=== PATIENT | female | born 1945 | race Two or more races ===

== ENCOUNTER → 2024-06-22 | Outpatient (CLI) | payer MEDICARE, MEDICAID, SELFPAY ==
[2024-06-22 15:36] LABS: Basophils # (Auto) 0.1 Thou/mm3 (0.0-0.2); Basophils % (Auto) 1 % (0-2.5); Eosinophils # (Auto) 0.2 Thou/mm3 (0.0-0.5); Eosinophils % (Auto) 3 % (0-10); Hematocrit 33.2 % (36.0-46.0); Hemoglobin 10.7 g/dL (12.0-16.0); Immature Granulocytes % (Auto) 1 % (0-0); Immature Granulocytes Auto 0.05 Thou/mm3 (0.00-0.00); Lymphocytes # (Auto) 1.8 Thou/mm3 (1.0-4.8); Lymphocytes % (Auto) 25 % (10-50); Mean Corpuscular HGB Conc 32.2 g/dl (31.0-37.0); Mean Corpuscular Volume 84 fL (80-100); Monocytes # (Auto) 0.6 Thou/mm3 (0.0-0.8); Monocytes % (Auto) 9 % (0-12); Neutrophils # (Auto) 4.4 Thou/mm3 (1.8-7.7); Neutrophils % (Auto) 61 % (37-80); Nucleated Red Blood Cell % 0 /100 WBC (0); Platelet Count 219 Thou/mm3 (140-440); RDW Standard Deviation 52.4 fL (36.4-46.3); Red Blood Count 3.96 Miln/mm3 (4.00-5.20); White Blood Count 7.2 Thou/mm3 (3.6-11.0)
[2024-06-22 15:40] LABS: Glucose Estimated Average 114 mg/dL (80-131); Hemoglobin A1C 5.6 % Hgb (4.8-6.0)
[2024-06-22 15:45] LABS: Folate 18.85 ng/mL (>5.38); Vitamin B12 1220 pg/mL (211-911); Vitamin D 25 Hydroxy Total 33.5 ng/mL (7.3-40.2)
[2024-06-22 16:08] LABS: Alanine Aminotransferase 11 U/L (10-49); Albumin, Serum 4.4 gm/dL (3.4-4.8); Albumin/Globulin Ratio 2.1 (1.2-2.2); Alkaline Phosphatase 70 U/L (46-116); Anion Gap 10 (7-16); Aspartate Amino Transferase < 8 U/L (0-34); BUN/Creatinine Ratio 29 Ratio (12-20); Bilirubin,Total 0.4 mg/dL (0.3-1.2); Blood Urea Nitrogen 20 mg/dL (9-23); Calcium 9.5 mg/dL (8.3-10.6); Calcium (Corrected) 9.5 mg/dL (8.5-10.1); Carbon Dioxide 22.7 mMol/L (20.0-31.0); Cardiac Risk Estimate 2.5 RATIO (3.7-5.6); Chloride 103 mMol/L (98-107); Cholesterol 109 mg/dL (132-200); Creatinine (Component) 0.7 mg/dL (0.6-1.3); Free T4 (Free Thyroxine) 1.43 ng/dL (0.89-1.76); Globulin 2.1 gm/dL (2.3-3.5); Glucose 148 mg/dL (74-106); HDL Cholesterol 43 mg/dL (40-60); LDL Cholesterol,Calculated 49 mg/dL (0-130); Magnesium 1.9 mg/dL (1.6-2.6); Osmolality,Calculated 277 (275-295); Potassium 4.1 mMol/L (3.4-5.1); Sodium 136 mMol/L (136-145); Thyroid Stimulating Hormone 0.62 uIU/mL (0.55-4.78); Total Protein 6.5 gm/dL (5.7-8.2); Triglycerides 84 mg/dL (30-150); eGFR > 60 See Note
== END | disposition home or self-care (01) ==
LOC: COPL 14:34
PROVIDERS: PCP Internal Medicine; Referring Provider Internal Medicine; Visit Provider Internal Medicine
DX: E11.9 Type 2 diabetes mellitus without complications (principal)
CPT/HCPCS: 36415; 80053; 80061; 81001; 82306; 82607; 82746; 83036; 83735; 84439; 84443; 85025

== ENCOUNTER → 2024-06-23 | Outpatient (CLI) | payer MEDICARE, MEDICAID, SELFPAY ==
[2024-06-23 13:17] LABS: Collection Type, Urine Clean Catch
[2024-06-23 13:47] LABS: Bacteria,Urine 3+; Bilirubin,Urine Negative (Negative); Blood,Urine 2+ (Negative); Color,Urine Drk-Yellow (Lt Yel-Yel); Glucose, Urine Negative (Negative); Ketones,Urine Negative (Negative); Leukocyte Esterase,Urine Positive (Negative); Nitrite,Urine Positive (Negative); PH,Urine 6.5 (5.0-7.0); Protein,Urine 2+ (Neg - Trace); RBC,Urine 80 /hpf (0-3); Specific Gravity,Urine 1.018 (1.001-1.035); Squamous Epithelial Cell,Urine 1 /hpf (0-5); Urobilinogen,Urine Negative mg/dL (0.0-1.0); WBC,Urine 2640 /hpf (0-5)
[2024-06-23 13:49] LABS: Clarity,Urine Turbid (Clear/Hazy); Culture Indicated,Urine Yes
== END | disposition home or self-care (01) ==
PROVIDERS: PCP Internal Medicine; Referring Provider Internal Medicine; Visit Provider Internal Medicine
DX: E11.9 Type 2 diabetes mellitus without complications (principal)
CPT/HCPCS: 81001; 87077; 87086; 87186

== ENCOUNTER → 2024-10-14 | Outpatient (CLI) | payer MEDICARE, MEDICAID, SELFPAY ==
[2024-10-14 12:24] LABS: Basophils # (Auto) 0.1 Thou/mm3 (0.0-0.2); Basophils % (Auto) 1 % (0-2.5); Eosinophils # (Auto) 0.2 Thou/mm3 (0.0-0.5); Eosinophils % (Auto) 3 % (0-10); Hematocrit 37.8 % (36.0-46.0); Hemoglobin 12.3 g/dL (12.0-16.0); Immature Granulocytes % (Auto) 0 % (0-0); Immature Granulocytes Auto 0.02 Thou/mm3 (0.00-0.00); Lymphocytes % (Auto) 34 % (10-50); Mean Corpuscular HGB Conc 32.5 g/dl (31.0-37.0); Mean Corpuscular Hemoglobin 27.8 pg (25.0-35.0); Mean Corpuscular Volume 85 fL (80-100); Monocytes # (Auto) 0.4 Thou/mm3 (0.0-0.8); Monocytes % (Auto) 6 % (0-12); Neutrophils # (Auto) 3.2 Thou/mm3 (1.8-7.7); Neutrophils % (Auto) 56 % (37-80); Nucleated Red Blood Cell % 0 /100 WBC (0); Platelet Count 146 Thou/mm3 (140-440); RDW Standard Deviation 49.1 fL (36.4-46.3); Red Blood Count 4.43 Miln/mm3 (4.00-5.20); White Blood Count 5.7 Thou/mm3 (3.6-11.0)
[2024-10-14 12:42] LABS: Glucose Estimated Average 114 mg/dL (80-131); Hemoglobin A1C 5.6 % Hgb (4.8-6.0)
== END | disposition home or self-care (01) ==
PROVIDERS: PCP Internal Medicine; Referring Provider Internal Medicine; Visit Provider Internal Medicine
DX: E11.9 Type 2 diabetes mellitus without complications (principal)
CPT/HCPCS: 36415; 83036; 85025

== ENCOUNTER 2025-05-27 23:28 | Inpatient (IN) | payer MEDICARE, MEDICAID, SELFPAY ==
[2025-05-27 23:30] VITALS: PULSE 80; O2SAT 97
[2025-05-27 23:39] VITALS: BMI 21.4
[2025-05-27 23:41] VITALS: BP 138/64; PULSE 82; RESP 45; TEMP 39.3; O2SAT 94
--- NOTE | 2025-05-27 23:59 | PD.EDCHEST ---
ED Chest Pain RME/HPI General Chief Complaint: Shortness of Breath/Dyspnea Stated Complaint: GENERAL ILLNESS Time Seen by Provider: 05/27/25 23:34 Arrival date/time: 05/27/25 23:28 RME / HPI RME / HPI narrative: Dr. Zarate?s Main ED Evaluation: 79 y/o female with Hx of CVA and HTN brought in by son to ED c/o shortness of breath and recent cough. Son states he saw his mother having labored breathing this evening and brought her to the ER. When asked, he stated the labored breathing was his mother breathing fast. Patient also complained of nausea, and fever x 1 day. No vomiting. Patient controls HTN with Carvedilol and Amlodipine. Son states mom has had hot flashes, generalized weakness, and labored breathing earlier this evening. Related Data Home Medications ?Medication ?Instructions ?Recorded ?Confirmed amlodipine 5 mg tablet 5 mg PO QDAY 09/08/23 05/28/25 gabapentin 800 mg tablet 200 mg PO QDAY 09/08/23 05/28/25 aspirin 81 mg tablet,delayed 81 mg PO QDAY 04/28/24 05/28/25 release atorvastatin 20 mg tablet 20 mg PO HS 04/28/24 05/28/25 carvedilol 25 mg tablet 25 mg PO BID 04/28/24 05/28/25 Allergies Allergy/AdvReac Type Severity Reaction Status Date / Time No Known Allergies Allergy Verified 06/23/20 11:30 Review of Systems Review of Systems Systems Reviewed: All systems reviewed, normal except as documented Past Medical History Past Medical History NEUROLOGIC: Positive Cerebrovascular Accident (Aug 2023 w/ left deficeits) CARDIAC: Positive Cardiac Disorders and Hypertension MUSCULOSKELETAL: Positive Musculoskeletal Disorders ENDOCRINE: Positive Endocrine Disorders and Diabetes Mellitus Type 2 Surgical History SURGICAL: Positive Hysterectomy ED Exam Narrative Physical exam: GENERAL APPEARANCE: alert and oriented x 4, well-developed, well-nourished, no acute distress, mild language barrier, son translating. Left-sided hemiplegia. VITALS: All vitals were reviewed and the pulse ox is 94% on 2 L/min via NC, according to my interpretation. HEENT: Normocephalic, atraumatic; pupils equal, round, reactive to light; EOMI; mucous membranes pink, moist; oropharynx clear NECK: Supple LUNGS: CTABL; no wheezes, no rales, no rhonchi. No tachypnea, no respiratory distress. HEART: Regular rate, regular rhythm; normal S1, S2; no murmurs ABDOMEN: non distended; normal BS; soft, no tenderness, no guarding, no rebound; no masses, no organomegaly, no hernia BACK: no CVA tenderness EXTREMITIES: atraumatic; no edema NEUROLOGIC: awake; alert and oriented x4; cranial nerves II-XII grossly intact; left-sided hemiplegia PSYCHIATRIC: appropriate mood and affect SKIN: warm, dry, normal color; no rashes Course Quality Measures Current suspected stage: sepsis Possible source: pulmonary and GI tract/intra-abdominal Blood cultures ordered: yes Antibiotic ordered: Yes Pertinent labs: 05/28/25 00:06 Lactic Acid 1.3 mMol/L (0.4-2.0) Procalcitonin 0.31 ng/ml (0.0-0.49) sepsis Orders Category Date Time Status Bedside COVID-19 Antigen Test NOW Care 05/28/25 00:[address] Screening NOW Care 05/28/25 02:15 Completed Contract Lead STAT Care 05/28/25 00:06 Active Continuous Pulse Oximetry STAT Care 05/28/25 00:06 Completed EKG (ED ONLY) *Do not use* NOW Care 05/28/25 00:06 Completed In and Out Catheter X1PRN Care 05/28/25 00:06 Completed Insert IV NOW Care 05/28/25 00:06 Completed NPO STAT Care 05/28/25 00:06 Completed Strict Intake and Output Routine Care 05/28/25 00:[address] abdomen pelvis wo con Stat Exams 05/28/25 05:[address] angio chest Stat Exams 05/28/25 02:[address] head/brain wo con Stat Exams 05/28/25 05:52 Completed EKG (ED Only) Stat Exams 05/28/25 00:06 Ordered US gall bladder Stat Exams 05/28/25 06:59 Completed XR chest 1V SEPSIS PROTOCOL Stat Exams 05/28/25 00:08 Completed B-Type Natriuretic Peptide Stat Lab 05/28/25 00:06 Completed Blood Culture (Lab) Stat Lab 05/28/25 00:06 Received CBC Stat Lab 05/28/25 00:06 Completed Comprehensive Metabolic Panel Stat Lab 05/28/25 00:06 Completed Influenza A & B Rapid Panel Stat Lab 05/28/25 00:41 Completed LDH (Lactate Dehydrogenase) Stat Lab 05/28/25 00:06 Completed Lactate (Lactic Acid) Stat Lab 05/28/25 00:06 Completed Lipase Stat Lab 05/28/25 00:06 Completed Magnesium Stat Lab 05/28/25 00:06 Completed Partial Thromboplastin Time Stat Lab 05/28/25 00:06 Completed Phosphorous Stat Lab 05/28/25 00:06 Completed Procalcitonin Stat Lab 05/28/25 00:06 Completed Prothrombin Time with INR Stat Lab 05/28/25 00:06 Completed Troponin I Stat Lab 05/28/25 00:06 Completed Urinalysis, C/S if Indicated Stat Lab 05/28/25 00:41 Completed VBG [Venous Blood Gas] Stat Lab 05/28/25 00:06 Completed Acetaminophen Ivpb [Ofirmev Inj] Med 05/28/25 02:42 Discontinued 1,000 mg in 100 ml IV NOW Doxycycline Inj [Vibramycin Inj] 100 mg Med 05/28/25 00:08 Discontinued Sodium Chloride 0.9% (Pop) [NS 0.9% mini bag] 100 ml IV X1 Piper/Tazo 3.375 gm Premix [Zosyn] Med 05/28/25 00:06 Discontinued 3.375 gm in 50 ml IV X1 Sodium Chloride 0.9% 1000 ml [Ns] 1,710 ml Med 05/28/25 00:06 Discontinued IV 1,710 mls/hr Oxygen Delivery NOW RT 05/28/25 00:06 Active Vital Signs Vital signs: Vital Signs Temperature 102.7 F H 05/27/25 23:41 Pulse Rate 82 05/27/25 23:41 Respiratory Rate 45 H 05/27/25 23:41 Blood Pressure 138/64 H 05/27/25 23:41 Pulse Oximetry (%) 94 L 05/27/25 23:41 Oxygen Delivery Method Nasal Cannula 05/27/25 23:41 Oxygen Flow Rate 2 05/27/25 23:41 Chest Pain MDM Narrative MDM Narrative:: 79-year-old female with history of hypertension, diabetes and CVA who presented to the emergency department complaining of shortness of breath and recent cough. Patient also complained of nausea, and fever x 1 day. No vomiting. Son states mom has had hot flashes, generalized weakness, and labored breathing earlier this evening. Denies abdominal pain, chest pain, back pain. No rashes. No dysuria, urinary frequency. Patient takes carvedilol and Amlodipine. Patient arrived febrile at 102.7 with respiratory rate in the 40s. A sepsis alert was called, blood cultures were ordered before antibiotics, 30 cc/kg given, Zosyn and doxycycline ordered, acetaminophen ordered. On the exam the patient appeared weak and she had crackles at the bases bilaterally. Patient's workup reveals leukocytosis at 19,000 with a left shift, dehydration with a BUN/creatinine ratio of 23, minimal hyperglycemia at 200. Normal lactate, normal magnesium, normal LFTs. Lipase is normal. Urine shows some hematuria. Patient had a chest x-ray which showed increased interstitial markings. CT chest ruled out PE and suggested pulmonary edema and a small pericardial effusion. I called Dr. Arevalo (hospitalist on duty). We discussed patient's case in detail. He evaluated the pt and said the pt is c/o abdominal pain now. I went in the room to talk to her about it she is now saying she has upper abdominal pain. She has already had a CT of the chest and I am not able to order a contrasted CT abdomen pelvis but will get noncontrasted. Also right upper quadrant ultrasound. 08:30 care turned over to Dr. Colin pending CT and U/S results. Scribe Attestation: I, Fiorella Diaz, am scribing for and in the presence of Dr. Zarate. Provider Notation: Although this document has been carefully reviewed, there may still be some phonetic and other typographical errors. These errors are purely grammatical due to imperfections in the software program and should not be construed in any way to compromise the substance of the patient's medical care during this visit. Patient data External records reviewed:: [facility] previous records (Reviewed prior ED records from 04/28/24. Patient was seen for CVA, old, hemiparesis.) and EMS form Clinical information provided by:: patient and family (Son) Social determinants that could affect healthcare access:: none Patient has the following chronic illnesses:: HTN, CVA with left deficits How is presenting disease/condition affected by chronic disease/condition?: exacerbated by Evaluation data The following diagnostics were reviewed and interpreted by me:: lab results, radiology exam(s) and EKG tracing(s) (EKG at 00:51 shows normal sinus rhythm at 85, left axis deviation, no ectopy, no signs of acute ischemia, Q wave in V1 and V2, per my interpretation.) Lab and/or radiology exams considered but not ordered:: None Interpretation Summary: See MDM narrative above. RADIOLOGY Procedure(s): US gall bladder Accession Number(s): [id number] cc: Mainor Brown MD; NO PRIMARY/FAMILY,PHYSICIAN; Corby Zarate MD~ Examination: Abdomen sonogram, Limited Date and time of exam: May 28, 2025, 0905 hours INDICATIONS: Onset abdominal pain today Technique: Real-time contreras scale transabdominal sonographic images of the upper abdomen obtained. Findings: 12 mm polyp anterior gallbladder wall No gallstones Gallbladder wall is thickened 0.6 cm with edema Common bile duct 0.4 cm no stones Pancreatic head 2.1 cm Liver 16.5 cm fatty infiltration No focal liver lesions Normal hepatopetal portal venous flow Patent IVC Minimal right pleural fluid IMPRESSION: 12 mm gallbladder polyp Acute acalculous cholecystitis, consider HIDA scan or MRCP follow-up as clinically warranted No common bile duct stones Dictated By: Mainor Brown MD Procedure(s): CT head/brain wo con Accession Number(s): [id number] cc: Eden Arevalo MD; Mainor Brown MD; NO PRIMARY/FAMILY,PHYSICIAN~ Examination: CT brain head without contrast. 2-D sagittal coronal reconstructions Date and time of exam: May 28, 2025, 0625 hours, comparison April 28, 2024 INDICATIONS: Altered mental status today CTDI: vol (mGy): 44 DLP: (mGycm): 821 Technique: Multiple CT axial sections of the brain have been obtained, 5 mm slice thickness. Contrast has not been administered. 2-D sagittal, coronal reconstructions have been obtained Low dose protocols were performed. One or more of the following dose reduction techniques were used; automated exposure control, adjustment of the mA and/or KV according to patient size, use of iterative reconstruction technique. Findings: Mild ventricular enlargement. Old infarcts right caudate nucleus right basal ganglia, encephalomalacia in left frontal lobe Intra-axial or extra-axial hemorrhage density is not seen. No mass effect or midline shift Basal cisterns are not remarkable. Fourth ventricle is midline. Cranial vault intact. Impression: No interval acute hemorrhage, mass effect or midline shift Advise correlation and follow-up accordingly Dictated By: Mainor Brown MD Procedure(s): CT abdomen pelvis wo con Accession Number(s): [id number] cc: Mainor Brown MD; NO PRIMARY/FAMILY,PHYSICIAN; Corby Zarate MD~ Examination: CT abdomen and pelvis without contrast. Coronal 3-D reconstructions. Sagittal 2-D reconstructions. Date and time of exam: May 28, 2025, 0626 hours INDICATIONS: Onset generalized abdominal pain today CTDI: vol (mGy): 10 DLP: (mGycm): 529 Technique: Axial images of the abdomen have been obtained, 3 mm slice thickness Intravenous contrast material has not been administered. Low dose protocols were performed. One or more of the following dose reduction techniques were used; automated exposure control, adjustment of the mA and/or KV according to patient size, use of iterative reconstruction technique. Findings: Small pericardial effusion mild enlargement left atrium left ventricle with vascular congestion and subtle edema at the lung bases Hepatomegaly 17 cm No focal liver or splenic lesions No gallstones identified, common bile duct is poorly visualized No pancreatic mass no dilated pancreatic duct or peripancreatic edema Adrenal glands are not enlarged No hydronephrosis Normal appendix, axial image 174 No bowel obstruction Scattered colonic diverticulosis Absent uterus No pelvic mass Rectal tube, moderate stool in the rectum No bladder mass Severe osteopenia Transpedicular lumbar fusion L3-L5 with satisfactory alignment Minimal chronic compression L1 Moderate narrowing hip joints IMPRESSION: Mild heart failure Hepatomegaly, 17 cm no focal liver lesions No gallstones identified, common bile duct poorly visualized, consider hepatobiliary sonography follow-up as clinically warranted No hydronephrosis Normal appendix Scattered colonic diverticulosis, no diverticulitis No bowel obstruction Dictated By: Mainor Brown MD Procedure(s): CT angio chest Accession Number(s): [id number] cc: Mainor Brown MD; NO PRIMARY/FAMILY,PHYSICIAN; Corby Zarate MD~ Examination: CTA chest with intravenous contrast 2-D reconstructions 3-D reconstructions, vascular Date and time of exam: May 28, 2025, 0252 hours INDICATIONS: Tachypnea hypoxia today CTDI: vol (mGy) 14.66 DLP: (mGycm) 322 Technique: Multiple axial sections of the thorax have been obtained. 3 mm slice thickness, from below the hemidiaphragms to above the apices of the lungs. Mediastinal and lung density settings have been obtained. 2-D sagittal and coronal reconstructions. 3-D angiographic renderings, 3-D volume renderings, 3D post processing, vascular maximum intensity projections obtained. Contrast administered is 100 cc Isovue 370. Low dose protocols were performed. One or more of the following dose reduction techniques were used; automated exposure control, adjustment of the mA and/or KV according to patient size, use of iterative reconstruction technique. Findings: No thoracic aortic aneurysmal dilatation or dissection Pulmonary artery segments are not enlarged No pulmonary artery filling defects noted Pretracheal lymph nodes, the largest 17 mm Poorly defined thyroid nodules Septal edema in the lung dempsey with vascular congestion Small pericardial effusion Significant osteopenia IMPRESSION: Negative for pulmonary artery emboli Mild heart failure Small pericardial effusion Dictated By: Mainor Brown MD Procedure(s): XR chest 1V SEPSIS PROTOCOL Accession Number(s): [id number] cc: Mainor Brown MD; NO PRIMARY/FAMILY,PHYSICIAN; Corby Zarate MD~ EXAMINATION: AP chest single view TECHNIQUE: AP portable upright chest single view Date and time: May 28, 2025, 0032 hours INDICATIONS: Sepsis protocol chest pain shortness of breath today. FINDINGS: Mild CHF Mild enlargement cardiac contour. Prominent vascular congestion. Perihilar edema. No lobar pneumonia. Prominent osteopenia IMPRESSION: Mild CHF No lobar pneumonia Dictated By: Mainor Brown MD Medications / Prescriptions Medications or Prescriptions considered but not ordered:: None Medication administrations:: Medication Administration History Acetaminophen (Acetaminophen 325 Mg Tablet) 650 mg PO Q6H PRN PRN Reason: Fever >100.4 or pain Stop: 06/27/25 10:54 Albuterol/Ipratropium (Albuterol/Ipratropium (Duoneb) Rt Carrol 3 Ml Nebu) 3 ml INH Q2HR PRN PRN Reason: SHORTNESS OF BREATH OR WHEEZE Stop: 06/27/25 10:54 Amlodipine Besylate (Amlodipine Besylate 5 Mg Tablet) 5 mg PO QDAY FARHAN Stop: 06/28/25 08:59 Aspirin (Aspirin Ec 81 Mg Tabec) 81 mg PO QDAY FARHAN Stop: 06/28/25 08:59 Atorvastatin Calcium (Atorvastatin Calcium 20 Mg Tablet) 20 mg PO HS FARHAN Stop: 06/27/25 20:59 Carvedilol (Carvedilol 12.5 Mg Tablet) 25 mg PO BIDWM FARHAN Stop: 06/27/25 17:29 Last Admin: 05/28/25 16:07 Dose: Not Given Documented By: MAURICIO Non-Admin Reason: NPO Docusate Sodium (Docusate Sod 100 Mg Capsule) 100 mg PO QDAY PRN; Protocol PRN Reason: CONSTIPATION Stop: 06/27/25 10:54 Enoxaparin Sodium (Enoxaparin Sod Inj 40 Mg/0.4 Ml Syringe) 40 mg SC QDAY FARHAN Stop: 06/11/25 10:59 Last Admin: 05/28/25 11:57 Dose: 40 mg Documented By: MAURICIO Ceftriaxone Sodium/Dextrose (Rocephin/D5w 1gm Iv Premix) 1 gm in 50 mls @ 100 mls/hr IV QDAY FARHAN Stop: 06/04/25 10:57 Last Admin: 05/28/25 11:54 Dose: 100 mls/hr Documented By: MAURICIO Azithromycin 500 mg/ Sodium (Chloride) 250 mls @ 250 mls/hr IV QDAY FARHAN Stop: 06/04/25 10:58 Last Admin: 05/28/25 13:05 Dose: 250 mls/hr Documented By: MAURICIO Ondansetron HCl (Ondansetron Inj 2 Mg/Ml Inj 2 Ml) 4 mg IVP Q6H PRN; Protocol PRN Reason: NAUSEA OR VOMITING Stop: 06/27/25 10:54 Sennosides (Senna Tablet) 1 tab PO QDAY PRN; Protocol PRN Reason: constipation Stop: 06/27/25 10:54 Discontinued Medications Albuterol/Ipratropium (Albuterol/Ipratropium (Duoneb) Rt Carrol 3 Ml Nebu) 3 ml INH X1 ONE Stop: 05/28/25 10:57 Last Admin: 05/28/25 13:10 Dose: 3 ml Documented By: FRANCISCO Sodium Chloride (Ns) 1,710 mls @ 1,710 mls/hr 30 ml/kg infuse over 60 min (1710 ml) IV .Q1H ONE Stop: 05/28/25 01:05 Last Infusion: 05/28/25 01:42 Dose: Infused Documented By: Admin: 05/28/25 00:33 Dose: 1,710 mls/hr Documented By: JORGE Piperacillin/Tazobactam/Dextrose (Zosyn) 3.375 gm in 50 mls @ 100 mls/hr IV X1 ONE Stop: 05/28/25 00:35 Last Infusion: 05/28/25 01:26 Dose: Infused Documented By: Admin: 05/28/25 00:33 Dose: 100 mls/hr Documented By: JORGE Doxycycline Hyclate 100 mg/ (Sodium Chloride) 100 mls @ 100 mls/hr IV X1 ONE Stop: 05/28/25 01:07 Last Infusion: 05/28/25 01:42 Dose: Infused Documented By: Admin: 05/28/25 00:41 Dose: 100 mls/hr Documented By: JORGE Acetaminophen (Ofirmev Inj) 1,000 mg in 100 mls @ 250 mls/hr IV NOW ONE Stop: 05/28/25 03:05 Last Infusion: 05/28/25 03:51 Dose: Infused Documented By: Admin: 05/28/25 03:23 Dose: 250 mls/hr Documented By: JORGE Potassium Phosphate (Pot Phos 15 Mmol In Ns 250 Ml) 15 mmol in 250 mls @ 62.5 mls/hr IV X1 ONE Stop: 05/28/25 16:50 Last Admin: 05/28/25 14:27 Dose: 62.5 mls/hr Documented By: MAURICIO See above if any Consultations Consultation(s) initiated? (list below): Yes Consultation #1 (Physician, Specialty, Details): Discussed with resident physician Dr. Clemente for admission. Reviewed the patient?s HPI, PMHx, lab and/or radiology results. Discussed treatment plan. Will consult an admission to the hospitalist. Time: 04:45 Consultation #2 (Physician, Specialty, Details): Discussed test HPI, PMHx, lab, radiology results and/or management with resident working with the hospitalist. Will admit for further evaluation and management. Accepts patient for admission. Time: 08:28 Diagnosis Chest Pain Differential Diagnosis: pneumothorax, stable angina, unstable angina pectoris, atypical chest pain, st elevation myocardial infarction, costochondritis, chest pain, biliary colic and other (Pneumonia) Most likely diagnosis given after review of the tests above:: Sepsis Dehydration Hyperglycemia Hematuria Admission Indicated Admission indicated?: indicated Explain why admission is indicated or not indicated:: Patient has abnormalities in their studies and needs admission, see above. Admission Request Was there a request for admission?: Yes Admission Attestation Admission request attestation: Discussed case with [] from Hospitalist service regarding admission. Discussed patients ED course, exam findings, labs, and radiology results. The Hospitalist [agrees,declines] to accept the patient for admission. Disposition Plan Disposition Plan: Admit Critical Care Time Critical Care Time Critical Care Time: Yes Total Critical Care Time (min.): 45 Attestation: The high probability of sudden, clinically significant deterioration in the patient?s condition required the highest level of my preparedness to intervene urgently. The services I provided to this patient were to treat and/or prevent clinically significant deterioration. Services included the following: chart data review, reviewing nursing notes and/or old charts, documentation time, furniture sales consultant collaboration regarding findings and treatment options, medication orders and management, direct patient care, vital sign assessments and ordering, interpreting and reviewing diagnostic studies and lab tests. Aggregate critical care time includes only time during which I was engaged in work directly related to the patient?s care, as described above, whether at bedside or elsewhere in the Emergency Department. It did not include time spent performing other reported procedures or the services of residents, students, nurses or physician assistants. Discharge Plan Plan Patient Disposition: Admit Acute Care w/in Hospital Problem List Clinical Impression: Sepsis, Dehydration, Hyperglycemia, Hematuria
[2025-05-28] VITALS (17 sets, daily range): BP systolic 105–146; BP diastolic 44–96; PULSE 61–83; RESP 13–38; TEMP 36.3–38.7; O2SAT 93–100; BMI 23.1
--- NOTE | 2025-05-28 00:08 | XR_ITS ---
EXAMINATION: AP chest single view TECHNIQUE: AP portable upright chest single view Date and time: May 28, 2025, 0032 hours INDICATIONS: Sepsis protocol chest pain shortness of breath today. FINDINGS: Mild CHF Mild enlargement cardiac contour. Prominent vascular congestion. Perihilar edema. No lobar pneumonia. Prominent osteopenia IMPRESSION: Mild CHF No lobar pneumonia
[2025-05-28] MEDS: PIPER/TAZO 3.375 GM PREMIX 3.375 GM/50 ML BAG IV (00:33)
[2025-05-28] MEDS: SODIUM CHLORIDE 0.9% 1000 ML 1,710 ML 1710 ML IV (00:33)
[2025-05-28 00:39] LABS: Lactate (Lactic Acid) 1.3 mMol/L (0.4-2.0)
[2025-05-28] MEDS: DOXYCYCLINE INJ 100 MG in SODIUM CHLORIDE 0.9% (POP) 100 ML IV (00:41)
[2025-05-28 00:42] LABS: Basophils # (Auto) 0.0 Thou/mm3 (0.0-0.2); Basophils % (Auto) 0 % (0-2.5); Eosinophils # (Auto) 0.3 Thou/mm3 (0.0-0.5); Eosinophils % (Auto) 1 % (0-10); Hematocrit 35.3 % (36.0-46.0); Hemoglobin 11.9 g/dL (12.0-16.0); Immature Granulocytes Auto 0.15 Thou/mm3 (0.00-0.00); Lymphocytes # (Auto) 1.1 Thou/mm3 (1.0-4.8); Lymphocytes % (Auto) 6 % (10-50); Mean Corpuscular HGB Conc 33.7 g/dl (31.0-37.0); Mean Corpuscular Hemoglobin 29.7 pg (25.0-35.0); Mean Corpuscular Volume 88 fL (80-100); Monocytes # (Auto) 0.7 Thou/mm3 (0.0-0.8); Monocytes % (Auto) 4 % (0-12); Neutrophils # (Auto) 16.7 Thou/mm3 (1.8-7.7); Neutrophils % (Auto) 88 % (37-80); Nucleated Red Blood Cell # 0.00 Thou/mm3 (0.00-0.00); Nucleated Red Blood Cell % 0 /100 WBC (0); Platelet Count 129 Thou/mm3 (140-440); RDW Standard Deviation 46.2 fL (36.4-46.3); Red Blood Count 4.01 Miln/mm3 (4.00-5.20); White Blood Count 18.9 Thou/mm3 (3.6-11.0)
[2025-05-28 00:49] LABS: Base Excess, Venous 1 (-3-3); O2 Saturation, Venous 83 % (96-97); PCO2, Venous 35 mmHg (36-56); PO2, Venous 43 mmHg (15-58); pH, Venous 7.46 (7.33-7.66)
[2025-05-28 01:03] LABS: INR 1.1 (0.9-1.3); Partial Thromboplastin Time 27.8 Seconds (22.0-36.0); Prothrombin Time 11.9 Seconds (9.0-12.2)
[2025-05-28 01:05] LABS: Alanine Aminotransferase 12 U/L (10-49); Albumin, Serum 4.3 gm/dL (3.4-4.8); Albumin/Globulin Ratio 2.0 (1.2-2.2); Alkaline Phosphatase 64 U/L (46-116); Anion Gap 12 (7-16); Aspartate Amino Transferase 25 U/L (0-34); BUN/Creatinine Ratio 23 Ratio (12-20); Bilirubin,Total 0.6 mg/dL (0.3-1.2); Blood Urea Nitrogen 18 mg/dL (9-23); Calcium 9.4 mg/dL (8.3-10.6); Calcium (Corrected) 9.4 mg/dL (8.5-10.1); Carbon Dioxide 23.5 mMol/L (20.0-31.0); Chloride 104 mMol/L (98-107); Creatinine (Component) 0.8 mg/dL (0.6-1.3); Estimated Creatinine Clearance 52.2 mL/min (>60); Globulin 2.2 gm/dL (2.3-3.5); Glucose 199 mg/dL (74-106); LDH (Lactate Dehydrogenase) 215 U/L (120-246); Lipase 26 U/L (12-53); Magnesium 1.8 mg/dL (1.6-2.6); Osmolality,Calculated 285 (275-295); Phosphorous 2.0 mg/dL (2.4-5.1); Potassium 3.7 mMol/L (3.4-5.1); Sodium 139 mMol/L (136-145); Total Protein 6.5 gm/dL (5.7-8.2); eGFR > 60 See Note
[2025-05-28 01:07] LABS: B-Type Natriuretic Peptide 126 pg/mL (0-100)
[2025-05-28 01:15] LABS: Procalcitonin 0.31 ng/ml (0.0-0.49); Troponin I < 0.020 ng/mL (0.0-0.045)
[2025-05-28 01:43] LABS: Collection Type, Urine Clean Catch; Squamous Epithelial Cell,Urine 0 /hpf (0-5)
[2025-05-28 01:45] LABS: Bilirubin,Urine Negative (Negative); Blood,Urine 1+ (Negative); Clarity,Urine Clear (Clear/Hazy); Color,Urine Yellow (Lt Yel-Yel); Culture Indicated,Urine Not Indicated; Glucose, Urine Negative (Negative); Hyaline Casts,Urine < 1 /hpf (0-1); Ketones,Urine Negative (Negative); Leukocyte Esterase,Urine Negative (Negative); Nitrite,Urine Negative (Negative); PH,Urine 6.0 (5.0-7.0); Protein,Urine 1+ (Neg - Trace); RBC,Urine 106 /hpf (0-3); Specific Gravity,Urine 1.027 (1.001-1.035); Urobilinogen,Urine Negative mg/dL (0.0-1.0); WBC,Urine 6 /hpf (0-5)
[2025-05-28 02:03] LABS: Influenza A Ag Negative; Influenza B Ag Negative
--- NOTE | 2025-05-28 02:15 | XR_ITS ---
Examination: CTA chest with intravenous contrast 2-D reconstructions 3-D reconstructions, vascular Date and time of exam: May 28, 2025, 0252 hours INDICATIONS: Tachypnea hypoxia today CTDI: vol (mGy) 14.66 DLP: (mGycm) 322 Technique: Multiple axial sections of the thorax have been obtained. 3 mm slice thickness, from below the hemidiaphragms to above the apices of the lungs. Mediastinal and lung density settings have been obtained. 2-D sagittal and coronal reconstructions. 3-D angiographic renderings, 3-D volume renderings, 3D post processing, vascular maximum intensity projections obtained. Contrast administered is 100 cc Isovue 370. Low dose protocols were performed. One or more of the following dose reduction techniques were used; automated exposure control, adjustment of the mA and/or KV according to patient size, use of iterative reconstruction technique. Findings: No thoracic aortic aneurysmal dilatation or dissection Pulmonary artery segments are not enlarged No pulmonary artery filling defects noted Pretracheal lymph nodes, the largest 17 mm Poorly defined thyroid nodules Septal edema in the lung dempsey with vascular congestion Small pericardial effusion Significant osteopenia IMPRESSION: Negative for pulmonary artery emboli Mild heart failure Small pericardial effusion
[2025-05-28] MEDS: ACETAMINOPHEN IVPB 1,000 MG/100 ML VIAL 250 MG IV (03:23)
--- NOTE | 2025-05-28 03:58 | PRELIM_ITS ---
CT angiogram of the chest with intravenous contrast (axial sections with sagittal and coronal reformats) May 28, 2025 at 0250 hours Clinical History: Tachypnea and hypoxia. Technique:Helical axial sections with sagittal and coronal reformats of the chest were obtained with intravenous contrast. Iterative reconstruction technique was employed to reduce patient radiation exposure. 3D/MIP reconstructed images were also provided. Comparison: No prior study is available for comparison. Findings: There is no evidence of acute pulmonary thromboembolism in the central pulmonary arteries. However, evaluation of the peripheral vessels is limited by respiratory motion artifacts and small peripheral emboli cannot be entirely excluded. There are prominent mediastinal lymph nodes in the prevascular, ao rtopulmonary, right paratracheal, pretracheal and subcarinal regions, the largest measuring 1.7 x 1 cm. The thoracic aorta demonstrates atheromatous calcification without evidence of aneurysm. There is a small complex pericardial effusion (HU 20). No evidence of pneumothorax. A small hiatal hernia is present. There are heterogeneous nodules in the right lobe of thyroid and isthmus, suggestive of multinodular goiter. The lungs demonstrate peribronchial and interlobular interstitial septal thickening. There is dependent subsegmental atelectasis at the lung bases. There are trace bilateral pleural effusions. No evidence of pneumothorax. Degenerative changes are identified in the spine. There are chronic fractures of the left lower ribs. The left adrenal is mildly thickened and nodular, which may be related to adenoma/hyperplasia. There is a subcentimeter renal cortical cyst. The other visualized upper abdominal viscera are unremarkable. Impression: 1. No evidence of acute pulmonary thromboembolism in the central pulmonary arteries. However, evaluation of the peripheral vessels is limited by respiratory motion artifacts and small peripheral emboli cannot be entirely excluded. 2. Findings suggestive of interstitial pulmonary edema. 3. Small complex pericardial effusion. 4. Other findings as described above. Suggest clinical correlation and follow up accordingly. Report Electronically Signed By: Philip Anderson 05/28/2025 3:57:57 AM [EST]
--- NOTE | 2025-05-28 05:47 | XR_ITS ---
Examination: CT abdomen and pelvis without contrast. Coronal 3-D reconstructions. Sagittal 2-D reconstructions. Date and time of exam: May 28, 2025, 0626 hours INDICATIONS: Onset generalized abdominal pain today CTDI: vol (mGy): 10 DLP: (mGycm): 529 Technique: Axial images of the abdomen have been obtained, 3 mm slice thickness Intravenous contrast material has not been administered. Low dose protocols were performed. One or more of the following dose reduction techniques were used; automated exposure control, adjustment of the mA and/or KV according to patient size, use of iterative reconstruction technique. Findings: Small pericardial effusion mild enlargement left atrium left ventricle with vascular congestion and subtle edema at the lung bases Hepatomegaly 17 cm No focal liver or splenic lesions No gallstones identified, common bile duct is poorly visualized No pancreatic mass no dilated pancreatic duct or peripancreatic edema Adrenal glands are not enlarged No hydronephrosis Normal appendix, axial image 174 No bowel obstruction Scattered colonic diverticulosis Absent uterus No pelvic mass Rectal tube, moderate stool in the rectum No bladder mass Severe osteopenia Transpedicular lumbar fusion L3-L5 with satisfactory alignment Minimal chronic compression L1 Moderate narrowing hip joints IMPRESSION: Mild heart failure Hepatomegaly, 17 cm no focal liver lesions No gallstones identified, common bile duct poorly visualized, consider hepatobiliary sonography follow-up as clinically warranted No hydronephrosis Normal appendix Scattered colonic diverticulosis, no diverticulitis No bowel obstruction
--- NOTE | 2025-05-28 05:52 | XR_ITS ---
Examination: CT brain head without contrast. 2-D sagittal coronal reconstructions Date and time of exam: May 28, 2025, 0625 hours, comparison April 28, 2024 INDICATIONS: Altered mental status today CTDI: vol (mGy): 44 DLP: (mGycm): 821 Technique: Multiple CT axial sections of the brain have been obtained, 5 mm slice thickness. Contrast has not been administered. 2-D sagittal, coronal reconstructions have been obtained Low dose protocols were performed. One or more of the following dose reduction techniques were used; automated exposure control, adjustment of the mA and/or KV according to patient size, use of iterative reconstruction technique. Findings: Mild ventricular enlargement. Old infarcts right caudate nucleus right basal ganglia, encephalomalacia in left frontal lobe Intra-axial or extra-axial hemorrhage density is not seen. No mass effect or midline shift Basal cisterns are not remarkable. Fourth ventricle is midline. Cranial vault intact. Impression: No interval acute hemorrhage, mass effect or midline shift Advise correlation and follow-up accordingly
--- NOTE | 2025-05-28 06:59 | XR_ITS ---
Examination: Abdomen sonogram, Limited Date and time of exam: May 28, 2025, 0905 hours INDICATIONS: Onset abdominal pain today Technique: Real-time contreras scale transabdominal sonographic images of the upper abdomen obtained. Findings: 12 mm polyp anterior gallbladder wall No gallstones Gallbladder wall is thickened 0.6 cm with edema Common bile duct 0.4 cm no stones Pancreatic head 2.1 cm Liver 16.5 cm fatty infiltration No focal liver lesions Normal hepatopetal portal venous flow Patent IVC Minimal right pleural fluid IMPRESSION: 12 mm gallbladder polyp Acute acalculous cholecystitis, consider HIDA scan or MRCP follow-up as clinically warranted No common bile duct stones
--- NOTE | 2025-05-28 07:01 | PD.RESEVENT ---
Documentation for date of: 05/28/25 Event Note Event Note: 79 y/o female with Hx of hemorrahgic CVA twice and HTN brought in by son to ED c/o shortness of breath, nausea and altered mentation. Patient is altered and alert only to name, son was contacted who said she had nausea, and her mentation wasn't at baseline, patient on room air with stable vitals, exam noted for abdominal tenderness for which a head CT and CT A/P were ordered. Patient seen and reviewed with attending Dr. Arevalo. Note written by Florencio Winkler MD PGY-1
--- NOTE | 2025-05-28 08:00 | PC.NURSE ---
PER REPORT, PT HERE WITH C/O COUGH, FEVER, AND SHORTNESS OS BREATH. SEPSIS ALERT WAS CALLED AFTER ARRIVAL, NOW PENDING ADMIT
--- NOTE | 2025-05-28 10:18 | PC.LAC ---
ATTEMPTED TO CALL REPORT AND NURSE UNAVAILABLE
[2025-05-28] MEDS: cefTRIAXone/D5w 1gm IV premix 1 GM/50 ML BAG IV (11:54)
--- NOTE | 2025-05-28 11:56 | PD.RESHP ---
Documentation for date of: 05/28/25 [facility] History of Present Illness Chief complaint: SOB History of present illness: 79 y/o F with PMHx significant for multiple CVA's w/ residual deficits, HTN presented to ED from home due to labored breathing per son. Son also reported to ED altered mental status, although baseline is unclear. Patient poor historian without family at bedside, history taken from chart review. Per chart, patient had nausea, fevers, labored breathing, and weakness for 1 day prior to presentation. At time of exam, patient endorsed shortness of breath, but denied nausea, fevers, chills, chest pain. ED course: Labs significant for: WBC 18.9, lactic acid 1.3, procal negative, urinalysis shows 6 WBCs and 106 RBCs without bacteria, nitrates, or leuk. esterace. Imaging significant for: Head CT unremarkable. CXR showing fluid vs right base PNA. Chest CTA showing no consolidation, no PE. A/P CT showed hepatomegaly, diverticulosis without inflammation. Patient receivied 1.7 L bolus NS, doxycycline, zosyn, and tylenol in ED. Review of Systems Review of Systems Systems Reviewed: All systems reviewed, normal except as documented Exam Vital Signs Temp Pulse Resp BP Pulse Ox O2 Del Method O2 Flow Rate 98.2 F 74 20 128/59 L 98 Nasal Cannula 2 05/28/25 10:55 05/28/25 10:55 05/28/25 10:55 05/28/25 10:55 05/28/25 10:55 05/28/25 10:55 05/28/25 10:55 Narrative Exam PE: Gen: Well-developed and well-nourished. Comfortable. HEENT: NCAT, PERRLA, EOMI, MMM, anicteric conjunctivae. L facial droop, slurred speech. CVS: normal S1 and S2. RRR. No M/R/G. Resp: CTA B/L. No rhonchi, rales, crackles. Wheezing. Abd: soft, non-tender, non-distended. BS+ in all 4 quadrants. MSK: Good ROM in RUE & RLE. No rash. Severe weakness CHU and LL extremities. Pain in left leg, 1+ edema right leg. Neuro: CN II-XII grossly intact. Strength 5/5 in RUE & RLE. Alert and oriented x1. Follows commands and answers simple questions appropriately. Psych: appropriate mood and affect. Results: Labs 05/29/25 04:54 05/29/25 04:54 Labs: Short CBC 05/28/25 Range/Units 00:06 WBC 18.9 H (3.6-11.0) Thou/mm3 Hgb 11.9 L (12.0-16.0) g/dL Hct 35.3 L (36.0-46.0) % Plt Count 129 L (140-440) Thou/mm3 BMP 05/28/25 00:06 Sodium 139 Potassium 3.7 Chloride 104 Carbon Dioxide 23.5 BUN 18 Creatinine 0.8 Glucose 199 H Calcium 9.4 Cardiac Enzymes 05/28/25 Range/Units 00:06 Troponin I < 0.020 (0.0-0.045) ng/mL Liver Function 05/28/25 Range/Units 00:06 Total Bilirubin 0.6 (0.3-1.2) mg/dL AST 25 (0-34) U/L ALT 12 (10-49) U/L Alkaline Phosphatase 64 (46-116) U/L Albumin 4.3 (3.4-4.8) gm/dL Urine 05/28/25 Range/Units 00:41 Urine Color Yellow (Lt Yel-Yel) Urine Clarity Clear (Clear/Hazy) Urine pH 6.0 (5.0-7.0) Ur Specific [place] 1.027 (1.001-1.035) Urine Protein 1+ A (Neg - Trace) Urine Glucose (UA) Negative (Negative) ABG Interpretation ABG results: 05/28/25 00:06 VBG pH 7.46 VBG pCO2 35 L VBG pO2 43 VBG Base Excess 1 Quality Measures Quality Measures sepsis Current suspected stage: ruled out Possible source: pulmonary and GI tract/intra-abdominal Blood cultures ordered: yes Antibiotic ordered: Yes Advance care planning discussed with:: patient Medications Home Medications and Allergies Home Medications ?Medication ?Instructions ?Recorded ?Confirmed ?Type amlodipine 5 mg tablet 5 mg PO QDAY 09/08/23 05/28/25 History gabapentin 800 mg tablet 200 mg PO QDAY 09/08/23 05/28/25 History aspirin 81 mg tablet,delayed 81 mg PO QDAY 04/28/24 05/28/25 History release atorvastatin 20 mg tablet 20 mg PO HS 04/28/24 05/28/25 History carvedilol 25 mg tablet 25 mg PO BID 04/28/24 05/28/25 History Allergies Allergy/AdvReac Type Severity Reaction Status Date / Time No Known Allergies Allergy Verified 06/23/20 11:30 Visit Medications Acetaminophen (Acetaminophen 325 Mg Tablet) 650 mg PO Q6H PRN PRN Reason: Fever >100.4 or pain Stop: 06/27/25 10:54 Albuterol/Ipratropium (Albuterol/Ipratropium (Duoneb) Rt Carrol 3 Ml Nebu) 3 ml INH Q2HR PRN PRN Reason: SHORTNESS OF BREATH OR WHEEZE Stop: 06/27/25 10:54 Docusate Sodium (Docusate Sod 100 Mg Capsule) 100 mg PO QDAY PRN; Protocol PRN Reason: CONSTIPATION Stop: 06/27/25 10:54 Enoxaparin Sodium (Enoxaparin Sod Inj 40 Mg/0.4 Ml Syringe) 40 mg SC QDAY FARHAN Stop: 06/11/25 10:59 Ceftriaxone Sodium/Dextrose (Rocephin/D5w 1gm Iv Premix) 1 gm in 50 mls @ 100 mls/hr IV QDAY FARHAN Stop: 06/04/25 10:57 Azithromycin 500 mg/ Sodium (Chloride) 250 mls @ 250 mls/hr IV QDAY FARHAN Stop: 06/04/25 10:58 Ondansetron HCl (Ondansetron Inj 2 Mg/Ml Inj 2 Ml) 4 mg IVP Q6H PRN; Protocol PRN Reason: NAUSEA OR VOMITING Stop: 06/27/25 10:54 Sennosides (Senna Tablet) 1 tab PO QDAY PRN; Protocol PRN Reason: constipation Stop: 06/27/25 10:54 Discontinued Medications Albuterol/Ipratropium (Albuterol/Ipratropium (Duoneb) Rt Carrol 3 Ml Nebu) 3 ml INH X1 ONE Stop: 05/28/25 10:57 Sodium Chloride (Ns) 1,710 mls @ 1,710 mls/hr 30 ml/kg infuse over 60 min (1710 ml) IV .Q1H ONE Stop: 05/28/25 01:05 Last Infusion: 05/28/25 01:42 Dose: Infused Piperacillin/Tazobactam/Dextrose (Zosyn) 3.375 gm in 50 mls @ 100 mls/hr IV X1 ONE Stop: 05/28/25 00:35 Last Infusion: 05/28/25 01:26 Dose: Infused Doxycycline Hyclate 100 mg/ (Sodium Chloride) 100 mls @ 100 mls/hr IV X1 ONE Stop: 05/28/25 01:07 Last Infusion: 05/28/25 01:42 Dose: Infused Acetaminophen (Ofirmev Inj) 1,000 mg in 100 mls @ 250 mls/hr IV NOW ONE Stop: 05/28/25 03:05 Last Infusion: 05/28/25 03:51 Dose: Infused Assessment & Plan Plan 79 y/o F with PMHx significant for multiple CVA's w/ residual deficits, HTN presented to ED from home due to labored breathing per son, admitted for acute encephalopathy secondary to pneumonia. #Acute encephalopathy secondary to #CAP Patient presented with complaints of fever, labord breathing with shortness of breath, altered mental status. A&Ox1, respirations at 30, fever 102.7 on presentation, currently satting well on room air.No clear consolidation on imaging, CXR showed possible right base fluid vs early PNA. Patient denied cough. Non septic. Received 1.7 L IV bolus in ED. CTA chest ruled out PE. - Rocephin 1 g IV qDay (started 05/28) - Azithromycin 500 mg IV qDay (started 05/28) - Tyelnol PRN - Blood cultures pending, follow up - Incentive spirometry - Will speak with family regarding patient's baseline #CVA, patient history Patient history 2 previous strokes with residual deficits. 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 Residual deficits of slurred speech, left sided facial droop, left sided weakness upper and lower extremities. - Resumed home meds: aspirin and atorvastatin. - failed swallow screen, speech eval pending. #HTN, patient history Patient history as stated. -Resume home meds: amlodipine and coreg. DVT prophylaxis: Lovenox GI prophylaxis: None Diet: NPO pending swallow screen Lines: PIV, Benedict Code status: Full Code Plan of care discussed with attending Dr. Church. Grant Tavera MD PGY-2 Attending Provider Attestation/Addendum ITamie DO, attest that I was physically present for the barth portions of the service and evaluated the patient with the resident and I reviewed and discussed the case with the resident and agree with the resident's findings and plans of care as documented above Patient is a 79-year-old female with Pmhx of multiple CVAs left sided deficits who was brought to ED due to altered mental status. Patient had also been reportedly noted to have labored breathing. No family at bedside and patient remains lethargic at time of evaluation. She endorsed fevers and generalized weakness, but denied any chills, chest pain, shortness of breath. However, patient is quite somnolent and requires frequent prompting at time of interview with some confusion. Attempt was made to call patient's son, but unsuccesful. Patient reports pain in her left leg with trace pitting edema in b/l LE. Will obtain venous doppler US of right lower extremity to rule out DVT. CXR showed mild CHF and prominent vascular congestion. chest CTA was negative for PE, but notable for mild HF and small pericardial effusion. She denies any abdominal pain, nausea or vomiting. Suspect source of infection to be more likely URI. She had a fever with T 102.7 on presentation with tachypnea. UA is negative. Flu and COVID negative. Will admit to med/tele for further workup and management of sepsis 2/2 suspected CAP. Will f/u with cultures and treat empirically with azithromycin and rocephin.
[2025-05-28] MEDS: ENOXAPARIN SOD INJ 40 MG/0.4 ML SYRINGE SC (11:57)
[2025-05-28] MEDS: AZITHROMYCIN INJ 500 MG in SODIUM CHLORIDE 0.9% 250 ML 250 ML 250 MG IV (13:05)
[2025-05-28] MEDS: ALBUTEROL/IPRATROPIUM (Duoneb) RT SOL 3 ML NEBU INH (13:10)
[2025-05-28] MEDS: POT PHOS 15 mMol in NS 250 ML 15 MMOL/250 ML BAG 62.5 MMOL IV (14:27)
[2025-05-29] VITALS (8 sets, daily range): BP systolic 132–149; BP diastolic 55–62; PULSE 66–71; RESP 17–20; TEMP 36.2–36.8; O2SAT 94–97
--- NOTE | 2025-05-29 05:14 | PC.NURSE ---
Pt refused to have blood sugar checked this AM. Pt educated on why sugar needs to be checked. Pt still refused blood sugar check despite education.
[2025-05-29 05:45] LABS: Basophils # (Auto) 0.0 Thou/mm3 (0.0-0.2); Basophils % (Auto) 0 % (0-2.5); Eosinophils # (Auto) 0.3 Thou/mm3 (0.0-0.5); Eosinophils % (Auto) 3 % (0-10); Hematocrit 31.8 % (36.0-46.0); Hemoglobin 10.5 g/dL (12.0-16.0); Immature Granulocytes Auto 0.05 Thou/mm3 (0.00-0.00); Lymphocytes # (Auto) 1.4 Thou/mm3 (1.0-4.8); Lymphocytes % (Auto) 16 % (10-50); Mean Corpuscular HGB Conc 33.0 g/dl (31.0-37.0); Mean Corpuscular Hemoglobin 29.3 pg (25.0-35.0); Mean Corpuscular Volume 89 fL (80-100); Monocytes # (Auto) 0.5 Thou/mm3 (0.0-0.8); Monocytes % (Auto) 6 % (0-12); Neutrophils # (Auto) 6.3 Thou/mm3 (1.8-7.7); Neutrophils % (Auto) 74 % (37-80); Nucleated Red Blood Cell # 0.00 Thou/mm3 (0.00-0.00); Nucleated Red Blood Cell % 0 /100 WBC (0); Platelet Count 122 Thou/mm3 (140-440); RDW Standard Deviation 47.3 fL (36.4-46.3); Red Blood Count 3.58 Miln/mm3 (4.00-5.20); White Blood Count 8.5 Thou/mm3 (3.6-11.0)
[2025-05-29 06:02] LABS: INR 1.1 (0.9-1.3); Partial Thromboplastin Time 30.8 Seconds (22.0-36.0); Prothrombin Time 11.5 Seconds (9.0-12.2)
[2025-05-29 06:08] LABS: Alanine Aminotransferase 11 U/L (10-49); Albumin, Serum 3.7 gm/dL (3.4-4.8); Albumin/Globulin Ratio 1.8 (1.2-2.2); Alkaline Phosphatase 60 U/L (46-116); Anion Gap 14 (7-16); Aspartate Amino Transferase 17 U/L (0-34); BUN/Creatinine Ratio 20 Ratio (12-20); Bilirubin,Total 0.4 mg/dL (0.3-1.2); Blood Urea Nitrogen 10 mg/dL (9-23); Calcium 8.6 mg/dL (8.3-10.6); Calcium (Corrected) 8.8 mg/dL (8.5-10.1); Carbon Dioxide 21.4 mMol/L (20.0-31.0); Chloride 108 mMol/L (98-107); Creatinine (Component) 0.5 mg/dL (0.6-1.3); Estimated Creatinine Clearance 83.4 mL/min (>60); Globulin 2.1 gm/dL (2.3-3.5); Glucose 89 mg/dL (74-106); Osmolality,Calculated 282 (275-295); Potassium 3.1 mMol/L (3.4-5.1); Sodium 143 mMol/L (136-145); Total Protein 5.8 gm/dL (5.7-8.2); eGFR > 60 See Note
[2025-05-29] MEDS: AZITHROMYCIN INJ 500 MG in SODIUM CHLORIDE 0.9% 250 ML 250 ML 250 MG IV (08:17)
[2025-05-29] MEDS: ENOXAPARIN SOD INJ 40 MG/0.4 ML SYRINGE SC (08:17)
[2025-05-29] MEDS: POTASSIUM CHL 10 mEq IVPB 10 MEQ/100 ML BAG 100 MEQ IV ×4 (09:38→12:33)
--- NOTE | 2025-05-29 09:57 | PC.SS ---
Addendum entered by TATIANA Walker 05/29/25 16:20: Rounding: pending cultures. Original Note: ASW met with patient at bedside, patient was to alert and oriented. ASW attempted to call son Gilbert to confirm demographic information and complete initial but son was not available, ASW left voicemail with call back number.
--- NOTE | 2025-05-29 10:58 | XR_ITS ---
Examination: Venous duplex lower extremity sonogram, bilateral. Date and time of exam: May 29, 2025, 11:10 a.m. INDICATIONS: Foot and leg swelling today Technique: Multiple sonographic images of the deep venous system have been obtained. B-mode/2-D grayscale imaging of vascular structures and Doppler spectral analysis (waveforms) and color performed Both legs are examined. Findings: Deep venous systems do not demonstrate abnormal echogenicity. All visualized deep veins exhibit compressibility. All visualized deep veins exhibit augmentation. Impression: Negative for deep vein thrombosis
[2025-05-29] MEDS: VANCOMYCIN/NS 1 GM IVPB 200 ML IV ×2 (11:14→22:44)
--- NOTE | 2025-05-29 13:21 | PD.RESPRO ---
Documentation for date of: 05/29/25 Subjective Subjective Interval history: No overnight events. Patient seen and examined at bedside, resting comfortably. Denies fever, chills, SOB, chest pain. On room air, satting well. Blood culture positive for 1/2 bottles GPC, rocephin changed to vancomycin. Follow blood culture. Exam Vital Signs Temp Pulse Resp BP Pulse Ox O2 Del Method O2 Flow Rate 97.4 F 66 18 142/60 H 97 Room Air 1 05/29/25 12:00 05/29/25 12:00 05/29/25 12:00 05/29/25 12:00 05/29/25 12:00 05/29/25 12:00 05/28/25 20:00 Narrative Exam PE: Gen: Well-developed and well-nourished. Comfortable. HEENT: NCAT, PERRLA, EOMI, MMM, anicteric conjunctivae. L facial droop, slurred speech, improved. CVS: normal S1 and S2. RRR. No M/R/G. Resp: CTA B/L. No rhonchi, rales, crackles. Wheezing, improved. Abd: soft, non-tender, non-distended. BS+ in all 4 quadrants. MSK: Good ROM in RUE & RLE. No rash. Severe weakness CHU and LL extremities. Pain in left leg, 1+ edema right leg. Neuro: CN II-XII grossly intact. Strength 5/5 in RUE & RLE. Alert and oriented x1. Follows commands and answers simple questions appropriately. Psych: appropriate mood and affect. Objective Labs 05/29/25 04:54 05/29/25 04:54 Labs: Laboratory Results - last 24 hr 05/29/25 04:54 WBC 8.5 D RBC 3.58 L Hgb 10.5 L Hct 31.8 L MCV 89 MCH 29.3 MCHC 33.0 RDW Std Deviation 47.3 H Plt Count 122 L Neut % (Auto) 74 Lymph % (Auto) 16 [place] % (Auto) 6 Eos % (Auto) 3 Baso % (Auto) 0 Neut # (Auto) 6.3 Lymph # (Auto) 1.4 [place] # (Auto) 0.5 Eos # (Auto) 0.3 Baso # (Auto) 0.0 Immature Gran # (Auto) 0.05 H Absolute Nucleated RBC 0.00 Immature Gran % 1 H Nucleated RBC % 0 PT 11.5 INR 1.1 APTT 30.8 Sodium 143 Potassium 3.1 L D Chloride 108 H Carbon Dioxide 21.4 Anion Gap 14 BUN 10 Creatinine 0.5 L Estim Creat Clear Calc 83.4 eGFR > 60 BUN/Creatinine Ratio 20 Glucose 89 D Calculated Osmolality 282 Calcium 8.6 Corrected Calcium 8.8 Total Bilirubin 0.4 AST 17 ALT 11 Alkaline Phosphatase 60 Total Protein 5.8 Albumin 3.7 D Globulin 2.1 L Albumin/Globulin Ratio 1.8 ABG Interpretation ABG results: 05/28/25 00:06 VBG pH 7.46 VBG pCO2 35 L VBG pO2 43 VBG Base Excess 1 Quality Measures Quality Measures sepsis Current suspected stage: ruled out Possible source: pulmonary and GI tract/intra-abdominal Blood cultures ordered: yes Antibiotic ordered: Yes Advance care planning discussed with:: patient Assessment & Plan Assessment Current Active Medications: Generic Name Dose Route Start Last Admin Trade Name Freq PRN Reason Stop Dose Admin Acetaminophen 650 mg 05/28/25 10:55 Acetaminophen 325 Mg Tablet PO 06/27/25 10:54 Q6H PRN Fever >100.4 or pain Albuterol/Ipratropium 3 ml 05/28/25 10:55 Albuterol/Ipratropium (Duoneb) Rt Carrol 3 Ml Nebu INH 06/27/25 10:54 Q2HR PRN SHORTNESS OF BREATH OR WHEEZE Amlodipine Besylate 5 mg 05/29/25 09:00 05/29/25 08:09 Amlodipine Besylate 5 Mg Tablet PO 06/28/25 08:59 Not Given QDAY FARHAN Aspirin 81 mg 05/29/25 09:00 05/29/25 08:09 Aspirin Ec 81 Mg Tabec PO 06/28/25 08:59 Not Given QDAY FARHAN Atorvastatin Calcium 20 mg 05/28/25 21:00 05/28/25 20:16 Atorvastatin Calcium 20 Mg Tablet PO 06/27/25 20:59 Not Given HS FARHAN Carvedilol 25 mg 05/28/25 17:30 05/29/25 08:08 Carvedilol 12.5 Mg Tablet PO 06/27/25 17:29 Not Given BIDWM FARHAN Docusate Sodium 100 mg 05/28/25 10:55 Docusate Sod 100 Mg Capsule PO 06/27/25 10:54 QDAY PRN CONSTIPATION Protocol Enoxaparin Sodium 40 mg 05/28/25 11:00 05/29/25 08:17 Enoxaparin Sod Inj 40 Mg/0.4 Ml Syringe SC 06/11/25 10:59 40 mg QDAY FARHAN Administration Azithromycin 500 mg/ Sodium 250 mls @ 250 mls/hr 05/28/25 10:59 05/29/25 08:17 Chloride IV 06/04/25 10:58 250 mls/hr QDAY FARHAN Administration Vancomycin/Sodium Chloride 200 mls @ 120 mls/hr 05/29/25 10:00 05/29/25 11:14 Vancomycin/Ns 1 Gm Ivpb IV 06/05/25 09:59 120 mls/hr BID@1000,2200 FARHAN Administration Protocol Ondansetron HCl 4 mg 05/28/25 10:55 Ondansetron Inj 2 Mg/Ml Inj 2 Ml IVP 06/27/25 10:54 Q6H PRN NAUSEA OR VOMITING Protocol Pharmacy Consult 1 each 05/29/25 09:00 Vancomycin Pharmacy To Dose 1 Each Each IV 06/28/25 08:59 QDAY PRN CONSULT Sennosides 1 tab 05/28/25 10:55 Senna Tablet PO 06/27/25 10:54 QDAY PRN constipation Protocol Plan 79 y/o F with PMHx significant for multiple CVA's w/ residual deficits, HTN presented to ED from home due to labored breathing per son, admitted for acute encephalopathy secondary to pneumonia. #Acute encephalopathy secondary to #CAP #Bacterremia, GPC Patient presented with complaints of fever, labord breathing with shortness of breath, altered mental status. A&Ox1, respirations at 30, fever 102.7 on presentation, currently satting well on room air.No clear consolidation on imaging, CXR showed possible right base fluid vs early PNA. Patient denied cough. Non septic. Received 1.7 L IV bolus in ED. CTA chest ruled out PE. GPC 1/2 bottles of blood culture. Changed Rocephin (05/28) to vancomycin. - Vancomycin pharmacy dosing IV qDay (started 05/29) - Azithromycin 500 mg IV qDay (started 05/28) - Tyelnol PRN - Blood cultures pending, follow up - Incentive spirometry - Will speak with family regarding patient's baseline #CVA, patient history Patient history 2 previous strokes with residual deficits. 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 Residual deficits of slurred speech, left sided facial droop, left sided weakness upper and lower extremities. Passed swallow screen, diet initiated. - Resumed home meds: aspirin and atorvastatin. - PT eval pending #HTN, patient history Patient history as stated. - Resume home meds: amlodipine and coreg. DVT prophylaxis: Lovenox GI prophylaxis: None Diet: Dysphagia 2 Lines: PIV, Benedict Code status: Full Code Plan of care discussed with attending Dr. Church. Grant Tavera MD PGY-2 Attending Provider Attestation/Addendum ITamie, DO, attest that I was physically present for the barth portions of the service and evaluated the patient with the resident and I reviewed and discussed the case with the resident and agree with the resident's findings and plans of care as documented above Patient seen and evaluated this AM. She is much more alert and admits to feeling much improved. She is noted to have GPC in 1out of 2 blood cultures. Will switch rocephin to vancomycin. Will repeat bcx in AM. Continue with azithromycin at this time. Will have ST and PT work with pt. Will f/u with cultures to further narrow abx.
[2025-05-29] MEDS: ATORVASTATIN CALCIUM 20 MG TABLET PO (20:40)
[2025-05-30] VITALS (12 sets, daily range): BP systolic 148–159; BP diastolic 57–89; PULSE 58–66; RESP 14–22; TEMP 36.2–36.7; O2SAT 94–96; BMI 22.5; BMI 11.0
[2025-05-30 06:14] LABS: Basophils # (Auto) 0.0 Thou/mm3 (0.0-0.2); Basophils % (Auto) 0 % (0-2.5); Eosinophils # (Auto) 0.3 Thou/mm3 (0.0-0.5); Eosinophils % (Auto) 4 % (0-10); Hematocrit 32.5 % (36.0-46.0); Hemoglobin 10.6 g/dL (12.0-16.0); Immature Granulocytes Auto 0.03 Thou/mm3 (0.00-0.00); Lymphocytes # (Auto) 1.4 Thou/mm3 (1.0-4.8); Lymphocytes % (Auto) 23 % (10-50); Mean Corpuscular HGB Conc 32.6 g/dl (31.0-37.0); Mean Corpuscular Hemoglobin 28.8 pg (25.0-35.0); Mean Corpuscular Volume 88 fL (80-100); Monocytes # (Auto) 0.4 Thou/mm3 (0.0-0.8); Monocytes % (Auto) 7 % (0-12); Neutrophils # (Auto) 4.0 Thou/mm3 (1.8-7.7); Neutrophils % (Auto) 66 % (37-80); Nucleated Red Blood Cell # 0.00 Thou/mm3 (0.00-0.00); Nucleated Red Blood Cell % 0 /100 WBC (0); Platelet Count 136 Thou/mm3 (140-440); RDW Standard Deviation 47.5 fL (36.4-46.3); Red Blood Count 3.68 Miln/mm3 (4.00-5.20); White Blood Count 6.0 Thou/mm3 (3.6-11.0)
[2025-05-30 06:25] LABS: Alanine Aminotransferase 12 U/L (10-49); Albumin, Serum 3.8 gm/dL (3.4-4.8); Albumin/Globulin Ratio 1.6 (1.2-2.2); Alkaline Phosphatase 61 U/L (46-116); Anion Gap 10 (7-16); Aspartate Amino Transferase 19 U/L (0-34); BUN/Creatinine Ratio 20 Ratio (12-20); Bilirubin,Total 0.5 mg/dL (0.3-1.2); Blood Urea Nitrogen 10 mg/dL (9-23); Calcium 9.0 mg/dL (8.3-10.6); Calcium (Corrected) 9.2 mg/dL (8.5-10.1); Carbon Dioxide 23.7 mMol/L (20.0-31.0); Chloride 107 mMol/L (98-107); Creatinine (Component) 0.5 mg/dL (0.6-1.3); Estimated Creatinine Clearance 83.4 mL/min (>60); Globulin 2.4 gm/dL (2.3-3.5); Glucose 113 mg/dL (74-106); Magnesium 1.5 mg/dL (1.6-2.6); Osmolality,Calculated 281 (275-295); Potassium 3.5 mMol/L (3.4-5.1); Sodium 141 mMol/L (136-145); Total Protein 6.2 gm/dL (5.7-8.2); eGFR > 60 See Note
--- NOTE | 2025-05-30 08:07 | EKG_ITS ---
[facility] Test Date: 2025-05-30 Pat Name: VICTOR MANUEL TAYLOR [facility] Medical Billing Associate: PRIETO : 1945 Requested By: Buzz Haji Order Number: [id number] Reading MD: Buzz Haji Measurements Intervals [place] Rate: 64 P: 57 [place]: 179 QRS: -17 QRSD: 85 T: 41 QT: 417 QTc: 433 Interpretive Statements SINUS RHYTHM Compared to ECG 04/28/2024 06:04:29 Sinus bradycardia no longer present /store/S0/[id number]
[2025-05-30] MEDS: AZITHROMYCIN INJ 500 MG in SODIUM CHLORIDE 0.9% 250 ML 250 ML 250 MG IV (08:28)
[2025-05-30] MEDS: POTASSIUM CHLORIDE 10% 20 MEQ/15 ML UDC PO (08:28)
[2025-05-30] MEDS: ASPIRIN EC 81 MG TABEC PO (08:29)
[2025-05-30] MEDS: Magnesium Sulfate 4 GM Ivpb 4 GM/50 ML BAG IV (08:29)
[2025-05-30] MEDS: ENOXAPARIN SOD INJ 40 MG/0.4 ML SYRINGE SC (08:29)
--- NOTE | 2025-05-30 09:12 | PC.SS ---
Follow up note: Blood cultures are positive. On IV antibiotic. Repeat blood cultures.
[2025-05-30] MEDS: VANCOMYCIN/NS 1 GM IVPB 200 ML IV (10:30)
[2025-05-30] MEDS: LEVOFLOXACIN/D5W 750MG IVPB 750 MG/150 ML BAG 100 MG IV (13:11)
--- NOTE | 2025-05-30 14:40 | ESPR_ITS ---
<Statement entered by Buzz Haji MD - 05/31/25 15:36> Patient was seen and examined at bedside. I agree on the assessment and plan on this note as documented by resident Colleen Mercado DO PGY1. 79-year-old female with past medical history as below admitted for acute encephalopathy, there is suspicion of underlying bacteremia however 1/2 blood culture resulted as staph epidermidis, antibiotic therapy narrowed down to levofloxacin. Repeat blood cultures pending, there is very high suspicion of blood culture being contaminant hence if blood cultures negative in a.m., will discharge patient on Levaquin to complete treatment for pneumonia. Otherwise patient is stable, family requesting discharge and home health. Case discussed with attending Dr. Robert Haji MD PGY-2 Documentation for date of: 05/30/25 Subjective Subjective Interval history: Blood culture(05/28) showed Staphylococcus epidermidis 1 out of 2. Ordered repeat blood culture today. Currently suspecting a contamination. Discontinued azithromycin IV 500 mg daily and IV vancomycin. Started IV levofloxacin 750 mg daily. No Overnight events. Labs reviewed and patient examined at the bedside. Denies chest pain, palpation,abdominal pain, N/V, fevers or chills. Exam Vital Signs Temp Pulse Resp BP Pulse Ox O2 Del Method O2 Flow Rate 97.1 F 58 L 14 150/72 H 96 Room Air 1 05/30/25 11:52 05/30/25 11:52 05/30/25 11:52 05/30/25 11:52 05/30/25 11:52 05/30/25 11:52 05/29/25 16:00 Narrative Exam General: No acute distress, well nourished, AAO x2 Eye: PERRL, EOMI, normal conjunctiva, no scleral icterus HENT: Normocephalic, atraumatic, hearing intact to conversation at normal volume, moist oral mucosa Neck: Supple, non-tender, no JVD, no lymphadenopathy Lungs: Non-labored respirations, symmetric chest rise, Clear to auscultate bilaterally, Slight wheezing Heart: Peripheral pulses intact bilaterally, Regular Rate and Rhythm. Abdomen: Soft, non-tender, non-distended, no palpable masses Musculoskeletal: Normal range of motion and strength, No cyanosis or edema, No visible joint swelling, Left facial droop improved. Skin: Skin is warm, dry, no rashes or lesions. Psychiatric: Cooperative, appropriate mood and affect, Awake and alert, not agitated Neuro: Cranial nerves II-XII grossly intact. Strength 4/5 throughout. Sensations intact to light touch. Objective Labs 05/30/25 04:25 05/30/25 04:25 Labs: Laboratory Results - last 24 hr 05/30/25 04:25 WBC 6.0 RBC 3.68 L Hgb 10.6 L Hct 32.5 L MCV 88 MCH 28.8 MCHC 32.6 RDW Std Deviation 47.5 H Plt Count 136 L Neut % (Auto) 66 Lymph % (Auto) 23 Surry % (Auto) 7 Eos % (Auto) 4 Baso % (Auto) 0 Neut # (Auto) 4.0 Lymph # (Auto) 1.4 Surry # (Auto) 0.4 Eos # (Auto) 0.3 Baso # (Auto) 0.0 Immature Gran # (Auto) 0.03 H Absolute Nucleated RBC 0.00 Immature Gran % 1 H Nucleated RBC % 0 Sodium 141 Potassium 3.5 Chloride 107 Carbon Dioxide 23.7 Anion Gap 10 BUN 10 Creatinine 0.5 L Estim Creat Clear Calc 83.4 eGFR > 60 BUN/Creatinine Ratio 20 Glucose 113 H Calculated Osmolality 281 Calcium 9.0 Corrected Calcium 9.2 Magnesium 1.5 L Total Bilirubin 0.5 AST 19 ALT 12 Alkaline Phosphatase 61 Total Protein 6.2 Albumin 3.8 Globulin 2.4 Albumin/Globulin Ratio 1.6 ABG Interpretation ABG results: 05/28/25 00:06 VBG pH 7.46 VBG pCO2 35 L VBG pO2 43 VBG Base Excess 1 Quality Measures Quality Measures sepsis Current suspected stage: ruled out Possible source: pulmonary and GI tract/intra-abdominal Blood cultures ordered: yes Antibiotic ordered: Yes Advance care planning discussed with:: patient and other Assessment & Plan Assessment Current Active Medications: Generic Name Dose Route Start Last Admin Trade Name Freq PRN Reason Stop Dose Admin Acetaminophen 650 mg 05/28/25 10:55 Acetaminophen 325 Mg Tablet PO 06/27/25 10:54 Q6H PRN Fever >100.4 or pain Albuterol/Ipratropium 3 ml 05/28/25 10:55 Albuterol/Ipratropium (Duoneb) Rt Carrol 3 Ml Nebu INH 06/27/25 10:54 Q2HR PRN SHORTNESS OF BREATH OR WHEEZE Amlodipine Besylate 5 mg 05/29/25 09:00 05/30/25 08:28 Amlodipine Besylate 5 Mg Tablet PO 06/28/25 08:59 5 mg QDAY FARHAN Administration Aspirin 81 mg 05/29/25 09:00 05/30/25 08:29 Aspirin Ec 81 Mg Tabec PO 06/28/25 08:59 81 mg QDAY FARHAN Administration Atorvastatin Calcium 20 mg 05/28/25 21:00 05/29/25 20:40 Atorvastatin Calcium 20 Mg Tablet PO 06/27/25 20:59 20 mg HS FARHAN Administration Carvedilol 25 mg 05/28/25 17:30 05/30/25 08:28 Carvedilol 12.5 Mg Tablet PO 06/27/25 17:29 25 mg BIDWM FARHAN Administration Docusate Sodium 100 mg 05/28/25 10:55 Docusate Sod 100 Mg Capsule PO 06/27/25 10:54 QDAY PRN CONSTIPATION Protocol Enoxaparin Sodium 40 mg 05/28/25 11:00 05/30/25 08:29 Enoxaparin Sod Inj 40 Mg/0.4 Ml Syringe SC 06/11/25 10:59 40 mg QDAY FARHAN Administration Levofloxacin/Dextrose 750 mg in 150 mls @ 100 mls/hr 05/30/25 11:30 05/30/25 13:11 Levaquin Ivpb IV 06/06/25 11:29 100 mls/hr QDAY FARHAN Administration Ondansetron HCl 4 mg 05/28/25 10:55 Ondansetron Inj 2 Mg/Ml Inj 2 Ml IVP 06/27/25 10:54 Q6H PRN NAUSEA OR VOMITING Protocol Sennosides 1 tab 05/28/25 10:55 Senna Tablet PO 06/27/25 10:54 QDAY PRN constipation Protocol Plan 79 y/o F with PMHx significant for multiple CVA's w/ residual deficits, HTN presented to ED from home due to labored breathing per son, admitted for acute encephalopathy secondary to pneumonia. #Acute encephalopathy secondary to #CAP #Bacterremia, GPC -Patient presented with complaints of fever, labord breathing with shortness of breath, altered mental status. A&Ox1, respirations at 30, fever 102.7 on presentation, currently satting well on room air.No clear consolidation on imaging, CXR showed possible right base fluid vs early PNA. Patient denied cough. Non septic. -Received 1.7 L IV bolus in ED. CTA chest ruled out PE. -Blood culture(05/28) showed Staphylococcus epidermidis 1 out of 2. -Discontinued Rocephin (05/28-), Vancomycin pharmacy dosing IV qDay (05/29- ), Azithromycin 500 mg IV qDay (05/28-) Plan: -Started IV levofloxacin 750 mg daily. (05/30-) -Tyelnol PRN -Repeat BCx pending -Incentive spirometry -Will speak with family regarding patient's baseline #CVA, patient history Patient history 2 previous strokes with residual deficits. 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 Residual deficits of slurred speech, left sided facial droop, left sided weakness upper and lower extremities. Passed swallow screen, diet initiated. - Resumed home meds: aspirin and atorvastatin. - PT eval pending #HTN, patient history Patient history as stated. - Resume home meds: amlodipine and coreg. DVT prophylaxis: Lovenox GI prophylaxis: None Diet: Dysphagia 2 Lines: PIV, Benedict Code status: Full Code Assessment and plan discussed with my attending physician Dr. Sparks and Dr. Haji (PGY-2) Dr. Mercado (PGY-1) - Internal medicine resident Attending Provider Attestation/Addendum I have seen and examined the patient. I was physically present for the barth portions of the services provided including history, physical exam, diagnosis, treatment plans and orders. I agree with assessment and plan of care as documented by residents. Patient seen and examined at bedside this morning. Appears comfortable and denies any new complaints. Vital signs are stable except for mild hypertension, saturating well on room air. Blood culture from 05/28 showed Staphylococcus aureus epidermidis in one of the 2 bottles, likely to be contamination, we will obtain repeat blood culture for confirmation. We will discontinue azithromycin and vancomycin, we will start patient on levofloxacin. Patient underwent physical therapy evaluation, was recommended to go to SNF. We will plan for discharge to SNF in next 24 to 48 hours if blood culture remain negative for more than 24 hours. Even though this this note was carefully revised there may still be minor errors in tax manager due to voice recognition software. Robert Sparks MD
--- NOTE | 2025-05-30 15:54 | PC.PT ---
Patient is safe to stand pivot transfer to a bedside commode with a FWW and 1 staff assist. RN made aware.
--- NOTE | 2025-05-30 19:18 | PC.NURSE ---
Pt daughter informed me that pt receive 1 time antifungal cream at home DT pt has yeast infection and wanting to continue that meds, called [facility] and noted that urinalysis doesnt show any yeast, per pt doesnt need the antifungal cream.
[2025-05-30] MEDS: ATORVASTATIN CALCIUM 20 MG TABLET PO (20:40)
[2025-05-30 21:16] LABS: Vancomycin,Trough 16.7 mcg/mL (5.0-10.0)
[2025-05-31] VITALS (8 sets, daily range): BP systolic 123–158; BP diastolic 62–93; PULSE 56–64; RESP 17–20; TEMP 36.3–36.8; O2SAT 93–96
[2025-05-31 05:43] LABS: Basophils # (Auto) 0.0 Thou/mm3 (0.0-0.2); Basophils % (Auto) 0 % (0-2.5); Eosinophils # (Auto) 0.3 Thou/mm3 (0.0-0.5); Eosinophils % (Auto) 6 % (0-10); Hematocrit 34.2 % (36.0-46.0); Hemoglobin 11.2 g/dL (12.0-16.0); Immature Granulocytes Auto 0.03 Thou/mm3 (0.00-0.00); Lymphocytes # (Auto) 1.5 Thou/mm3 (1.0-4.8); Lymphocytes % (Auto) 29 % (10-50); Mean Corpuscular HGB Conc 32.7 g/dl (31.0-37.0); Mean Corpuscular Hemoglobin 28.9 pg (25.0-35.0); Mean Corpuscular Volume 88 fL (80-100); Monocytes # (Auto) 0.4 Thou/mm3 (0.0-0.8); Monocytes % (Auto) 7 % (0-12); Neutrophils # (Auto) 2.8 Thou/mm3 (1.8-7.7); Neutrophils % (Auto) 57 % (37-80); Nucleated Red Blood Cell # 0.00 Thou/mm3 (0.00-0.00); Nucleated Red Blood Cell % 0 /100 WBC (0); Platelet Count 166 Thou/mm3 (140-440); RDW Standard Deviation 46.1 fL (36.4-46.3); Red Blood Count 3.87 Miln/mm3 (4.00-5.20); White Blood Count 5.0 Thou/mm3 (3.6-11.0)
[2025-05-31 06:13] LABS: Alanine Aminotransferase 10 U/L (10-49); Albumin, Serum 4.1 gm/dL (3.4-4.8); Albumin/Globulin Ratio 1.6 (1.2-2.2); Alkaline Phosphatase 62 U/L (46-116); Anion Gap 9 (7-16); Aspartate Amino Transferase 16 U/L (0-34); BUN/Creatinine Ratio 16 Ratio (12-20); Bilirubin,Total 0.5 mg/dL (0.3-1.2); Blood Urea Nitrogen 8 mg/dL (9-23); Calcium 8.9 mg/dL (8.3-10.6); Calcium (Corrected) 8.9 mg/dL (8.5-10.1); Carbon Dioxide 25.4 mMol/L (20.0-31.0); Chloride 107 mMol/L (98-107); Creatinine (Component) 0.5 mg/dL (0.6-1.3); Estimated Creatinine Clearance 80.1 mL/min (>60); Globulin 2.5 gm/dL (2.3-3.5); Glucose 108 mg/dL (74-106); Magnesium 1.9 mg/dL (1.6-2.6); Osmolality,Calculated 280 (275-295); Potassium 3.8 mMol/L (3.4-5.1); Sodium 141 mMol/L (136-145); Total Protein 6.6 gm/dL (5.7-8.2); eGFR > 60 See Note
[2025-05-31] MEDS: MAGNESIUM OXIDE 400 MG TABLET PO (08:07)
[2025-05-31] MEDS: ASPIRIN EC 81 MG TABEC PO (08:07)
[2025-05-31] MEDS: LEVOFLOXACIN/D5W 750MG IVPB 750 MG/150 ML BAG 100 MG IV (08:08)
[2025-05-31] MEDS: ENOXAPARIN SOD INJ 40 MG/0.4 ML SYRINGE SC (08:08)
--- NOTE | 2025-05-31 10:17 | PC.SS ---
Late note 05-30-25: SS met with patient and spoke to son (by phone) regarding her d/c plan. Pt is confused. Pt was admitted for SOB. Son confirmed demographic and contact information is correct on facesheet. Pt resides with her caregiver. Pt transfers with assistance into wheelchair. Pt requires assistance with ADLS. SS provided verbal d/c options to home or SNF. Son refuses SNF and his choice is for pt to return home with HH. Per son, pt is established with [facility]. Son, Gilbert Whitehead states he is patient's named medical decision maker. Caregiver will provide transportation home. Pt followed up with PCP last Friday. D/C plan: Return home Next of Kin: Gilbert Whitehead, son, phone# [phone] PCP: Dr. Dex Zimmer Address: Correct on facesheet [facility]: [facility]
--- NOTE | 2025-05-31 14:48 | ESDS_ITS ---
<Statement entered by Grant Tavera MD - 05/31/25 15:41> Patient seen and examined at bedside. I discussed and supervised with the internet sourcer physician who took care of this patient. I personally saw and examined the patient. I agree with most of the assessment and plan. Plan of care discussed with attending Dr. Sparks. Grant Tavera MD PGY-2 Planned Discharge Date 05/31/25 DS: Providers Provider Date of admission: 05/28/25 08:46 Primary care physician: Physician No Primary/Family Admitting Provider: Tamie Church DO Attending Provider on Admission: Tamie Church DO Consults: 05/28/25 13:45 Referral Speech Therapy Urgent Comment: failed swallow screen 05/29/25 10:15 Referral Physical Therapy Routine Comment: Physician Instructions: Attending Provider on DC: Colleen Mercado DO Discharging Provider: Colleen Mercado DO DS: Diagnosis Problem List Completed Was Problem List Reviewed/Reconciled?: Yes Hospital Course Hospital Course Hospital course: Summary: 79 y/o F with PMHx significant for multiple CVA's w/ residual deficits, HTN presented to ED from home due to labored breathing per son, admitted for acute encephalopathy secondary to pneumonia. Patient was given IV antibiotics. First Blood culture showed Staphylococcus epidermidis 1 out of 2. Repeat blood culture was negative. Patient's lab and vitals were stable. Patient was discharged on 05/31 Hospital Course: On presentation, patient had leukocytosis, Head CT negative, CXR showed right base pnuemonia, Chest CTA showed no PE. Upon admission to the hospital (05/28), patient started on Rocephin 1 g IV qDay and Azithromycin 500 mg IV qDay. Given Incentive spirometry, resumed home meds: aspirin and atorvastatin. On 05/29, Blood culture positive for 1/2 bottles GPC, so IV rocephin was changed to vancomycin. On 05/30, blood culture showed Staphylococcus epidermidis 1 out of 2. Ordered repeat blood culture, was likely contamination. Discontinued azithromycin IV 500 mg daily and IV vancomycin. Started IV levofloxacin 750 mg daily. On 05/31, repeat blood culture was negative. Patient's lab and vitals were stable, and patient was discharged. #Acute encephalopathy secondary to #CAP #CVA, patient history #HTN, patient history Instructions: - Complete antibiotic treatment with Levofloxacin for Pneumonia for four more days, - All other medications as below - Follow up with PCP outpatient in 1 week - Return to ED if symptoms worsen Assessment and plan discussed with my attending physician Dr. Sparks and Dr. Tavera (PGY-2) Dr. Mercado (PGY-1) - Internal medicine resident Status at Discharge Overall status at discharge: patient is progressing back to baseline Time Spent with Patient Time attestation: Total time spent providing and/or coordinating discharge services: 36 minutes Time spent: Greater than 30 minutes Home Health Home Health Referral Orders: 05/31/25 13:10 Home Health Referral Routine Reason For Exam: Generalized weakness Home-Bound The patient must either because of illness or injury, need the aid of supportive devices such as crutches, canes, wheelchairs, and walkers; the use of special transportation; or the assistance of another person in order to leave their place of residence; OR have a condition such that leaving his or her home is medically contraindicated. In addition, the patient also meets the following criteria: patient is normally unable to leave the home and leaving home requires considerable taxing effort. Addendum to Home Health Certification Practitioner's Certification: I certify that the patient has been under my care in the hospital and the care of attending physician (see below). We had a [id number] encounter on (see date below). My clinical findings indicate that the patient is home bound per the above criteria and the Home Health Services noted in these orders are medically necessary. The primary reason for the [id number] encounter is related to the fact that the patient requires home health services. Date Certifying Evse-gy-Cyle Physician Encounter: 05/28/25 Physician's Name who will Assume Oversight for HH Services: Physician No Primary/Family RIDER TICKET WORKER - Community Resources: No PT to Evaluate: Yes PT to evaluate and provide a treatmnet plan to increase patient's mobility and strength. Wound Care: No IV Therapy: No RN Safety Evaluation: Yes RN to evaluate and create a plan of care that will produce positive outcomes. Palliative Treatment: No Palliative treatment and evaluate the need for hospice. Home Health Aide - Personal Care: No Home Health Aide to assist with any ADL's. Exam Vital Signs Temp Pulse Resp BP Pulse Ox O2 Del Method O2 Flow Rate 97.4 F 60 17 123/63 96 Room Air 1 05/31/25 11:11 05/31/25 11:11 05/31/25 11:11 05/31/25 11:11 05/31/25 11:11 05/31/25 11:11 05/29/25 16:00 Narrative Exam General: No acute distress, well nourished, AAO x2 Eye: PERRL, EOMI, normal conjunctiva, no scleral icterus HENT: Normocephalic, atraumatic, hearing intact to conversation at normal volume, moist oral mucosa Neck: Supple, non-tender, no JVD, no lymphadenopathy Lungs: Non-labored respirations, symmetric chest rise, Clear to auscultate bilaterally, Slight wheezing Heart: Peripheral pulses intact bilaterally, Regular Rate and Rhythm. Abdomen: Soft, non-tender, non-distended, no palpable masses Musculoskeletal: Normal range of motion and strength, No cyanosis or edema, No visible joint swelling, Left facial droop improved. Skin: Skin is warm, dry, no rashes or lesions. Psychiatric: Cooperative, appropriate mood and affect, Awake and alert, not agitated Neuro: Cranial nerves II-XII grossly intact. Strength 4/5 throughout. Sensations intact to light touch. Discharge Plan Plan Patient Disposition: Home w/HOME HEALTH Patient condition on transfer: Stable Care Plan Goals: - Complete antibiotic treatment with Levofloxacin for Pneumonia for four more days, - All other medications as below - Follow up with PCP outpatient in 1 week - Return to ED if symptoms worsen Prescriptions/Referrals Prescriptions/Med Rec: New levofloxacin 750 mg tablet 750 mg PO QDAY Qty: 4 0RF Continued amlodipine 5 mg tablet 5 mg PO QDAY Patient Comments: TAKE ONE TABLET BY MOUTH DAILY FOR BLOOD PRESSURE gabapentin 800 mg tablet 200 mg PO QDAY Patient Comments: TAKE ONE TABLET BY MOUTH THREE TIMES DAILY FOR NERVE PAIN carvedilol 25 mg Tablet 25 mg PO BID atorvastatin 20 mg Tablet 20 mg PO HS aspirin 81 mg Tablet,Delayed Release (Dr/Ec) 81 mg PO QDAY Referrals: No Primary/Family,Physician [Primary Care Provider] Patient/Caregiver Discharge Instructions Education Materials: Preventing Pneumonia, Treating Pneumonia Print Language: Kiswahili Stand Alone Forms: Leidy Award Info., Patient Portal Info Letter Discharge Order Discharge Orders: Discharge (Routine); Ordered 05/31/25 Ordered By: Buzz Haji Quality Discharge Quality Measures VTE prophylaxis MD Attestestation MD Attestation I have seen and examined the patient. I was physically present for the barth portions of the services provided including history, physical exam, diagnosis, treatment plans and orders. I agree with assessment and plan of care as documented by residents. Even though this this note was carefully revised there may still be minor errors in management accountant due to voice recognition software. Robert Sparks MD
--- NOTE | 2025-06-01 10:22 | PC.CM ---
I spoke to Karli with [facility]. I faxed over referral today. phone # [phone] fax [phone].
== END 2025-05-31 16:56 | disposition home health service (06) | DRG 194 ==
LOC: SERX 05-28 05:30 → SERHOLD 05-28 08:59 → S3NX 05-28 10:28
PROVIDERS: Admitting Provider Internal Medicine; Emergency Provider Emergency Medicine; Visit Provider Internal Medicine
DX: J18.9 Pneumonia, unspecified organism (principal); G93.49 Other encephalopathy; I69.354 Hemiplegia and hemiparesis following cerebral infarction affecting left non-dominant side; I31.39 Other pericardial effusion (noninflammatory); I69.30 Unspecified sequelae of cerebral infarction; I11.0 Hypertensive heart disease with heart failure; I50.9 Heart failure, unspecified; I69.328 Other speech and language deficits following cerebral infarction; I69.392 Facial weakness following cerebral infarction; R29.810 Facial weakness; Z79.899 Other long term (current) drug therapy
CPT/HCPCS: 36415; 51701; 70450; 71045; 71275; 74176; 76705; 80053; 80202; 81001; 82803; 83605; 83615; 83690; 83735; 83880; 84100; 84145; 84484; 85025; 85610; 85730; 87040; 87077; 87081; 87186; 87502; 87635; 92526; 92610; 93005; 93970; 94640; 94664; 94762; 96365; 96366; 97163; 99285; A4649; A9270; J0131; J0456; J0696; J1650; J1956; J2543; J3373; J3475; J3480; J3490; J7030; J7050; J7999; Q9967

== ENCOUNTER 2025-06-28 13:21 | Outpatient (AMB) | payer MEDICARE, MEDICAID, SELFPAY ==
--- NOTE | 2025-06-28 13:34 | GYNCLNT_ITS ---
Vital Signs 06/28/25 13:35 Height 1.65 m Height Method Stated Weight 56.245 kg Weight Measurement Method Standing Scale BMI 20.6 BP 130/82 Blood Pressure Source Automatic Cuff Blood Pressure Location Right Upper Arm Position Sitting Respiration 18 Pulse 59 L Pulse Source Monitor Temp 97.4 F Temp Source Temporal Artery Scan Pulse Oximetry (%) 98 Oxygen Delivery Method Room Air Allergies/Home Meds Allergies & Medications Allergies No Known Allergies Allergy (Verified 06/28/25 13:44) Medication Reconciliation amlodipine 5 mg tablet 5 mg PO QDAY 09/08/23 [History Confirmed 06/28/25] gabapentin 800 mg tablet 200 mg PO QDAY 09/08/23 [History Confirmed 06/28/25] aspirin 81 mg tablet,delayed release 81 mg PO QDAY 04/28/24 [History Confirmed 06/28/25] atorvastatin 20 mg tablet 20 mg PO HS 04/28/24 [History Confirmed 06/28/25] carvedilol 25 mg tablet 25 mg PO BID 04/28/24 [History Confirmed 06/28/25] levofloxacin 750 mg tablet 750 mg PO QDAY CAP #4 tabs 05/31/25 [Rx Confirmed 06/28/25] clobetasol 0.05 % topical ointment 1 applic topical QAM AND QPM 2 weeks #60 grams 06/28/25 [Rx] estradiol 0.01% (0.1 mg/gram) vaginal cream 1 g vaginal QWEEK 30 days #42.5 grams 06/28/25 [Rx] fluconazole 150 mg tablet 150 mg PO Q3D 2 doses #2 tabs 06/28/25 [Rx] secnidazole 2 gram oral delayed release granules in packet 1 packet PO ONCE HS 1 day #1 ea 06/28/25 [Rx] Intake Visit Data Collection New Patient or Established: Established Patient (seen at [facility] within 3 years) Reason for Visit:: REFERRAL VAGINAL BLEEDING Seen by Clinical Staff ONLY (RN/MA): No Do You Feel Safe at Home: Yes Authorities Contacted: N/A PCP or OBGYN visit in last 3 months: No Hx Now: No Are you currently on any form of Control: No Pain Present Currently: No Pain Location: Unable to identify (VAGINAL AREA) Pain Scale Used: Marques-Jim/Numerical Pain scale:: 0 Smoking Status Smoking Status: Never smoker Immunizations Flu Vaccine in the Last 12 Months: No Flu Vaccine Exclusion Criteria: No Exclusion Criteria FIRST RESPONDER: Past Medical History Past Medical History: No Hx Neurological Disorders, No Hx Cardiac Disorders, Yes Hx Hypertension, No Hx Blood Disorders, No Hx Renal Disease, No Hx Diabetes Mellitus Type 1, Yes Hx Diabetes Mellitus Type 2 and Yes Hx Hysterectomy Questionnaires Covid-19 Vaccine Questionnaire Has patient been vacinated for Covid-19 Have you been vacinated for Covid-19: No PHQ-9 PHQ-2 Over the last 2 weeks, how often have you been bothered by any of the following problems? 1. Little interest or pleasure in doing things: not at all 2. Feeling down, depressed, or hopeless: not at all Total score: 0 PHQ-9 3. Trouble falling or staying asleep, or sleeping too much: Not at all 4. Feeling tired or having little energy: Not at all 5. Poor appetite or overeating: Not at all 6. Feeling bad about yourself - or that you are a failure or have let yourself or your family down: Not at all 7. Trouble concentrating on things, such as reading the newspaper or watching television: Not at all 8. Moving or speaking so slowly that other people could have noticed? - Or the opposite - being so fidgety or restless that you have been moving around a lot more than usual: not at all 9. Thoughts that you would be better off or of hurting yourself in some way: Not at all Total score: 0 If you checked off any problems, how difficult have these problems made it for you to do your work, take care of things at home, or get along with other people?: not difficult at all Source: Developed by Drs. Eliezer Banerjee, Lauren Caldera, Armand Hogan and colleagues, with an educational don from [employer]. Depression screen completed yes Social History Living Situation History Marital Status: Unknown Lives With: Family Housing: House Housing Other:: Pt is alert/confused Tobacco History Smoking Status: Never smoker Second Hand Smoke Exposure: No Alcohol History Alcohol Intake: Never Domestic Abuse History Do You Feel Safe at Home: Yes History of Present Illness HPI Narrative Vaginal bleeding in a 79-year-old postmenopausal woman status post hysterectomy Migdalia Whitehead is a 79-year-old postmenopausal woman with a history of hysterectomy in 1987 who presents with vaginal bleeding. She was referred stat from her primary care physician's office. The patient has been experiencing vaginal bleeding along with persistent itching and scratching in the genital area for approximately 6 months, since her last hospitalization. Her caregiver reports that she has been scratching the area extensively, leading to open skin both inside and outside the vaginal area. The scratching and irritation has progressed to include white and red spots, with the patient now experiencing burning sensations during cleaning and pain in both the front and back genital areas. The patient was initially treated with antibiotics by her primary care physician for suspected bladder infection, but the symptoms persisted and worsened. She received a second course of antibiotics when bleeding developed from both front and back areas, but again showed no improvement. During a recent hospitalization for pneumonia approximately 2 weeks ago, the genital infection was noted but no specific treatment was provided. Her caregiver has been applying an antifungal cream similar to clotrimazole to the external area, which provided some relief from itching, though the caregiver has not checked the area recently. The patient was previously prescribed a hormone cream for 3 days, though the caregiver indicates uncertainty about recent usage. The patient's symptoms have significantly impacted her comfort during personal care, as she now experiences pain during bathing and cleaning, which was not previously problematic. 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 Areas of thin skin with pressure-related inflammation noted. Red spots and white areas observed on vulvar tissue General General Appearance: alert, in no apparent distress and healthy appearing Head Head exam: atraumatic Neck Neck exam: Present normal inspection and trachea midline Chest Chest inspection: Present normal inspection and symmetric chest wall rise External exam: Present normal external exam; Absent tenderness Neuro Neurological exam: Present oriented X3 Psych Psychiatric exam: Present normal affect and normal mood Office Procedures [facility] Clinic LOC & Office Proc's Nursing/Assessment Patient Status: Established Patient OB Clinic Nursing Assessment: Medication Reconciliation, Update PMH in EMR and Vital Signs OB Clinic Coordination of Care: Complex Care and Chronic Disease 1-5, Education Complex Pt/Fam, Consent,records obtained, informed consent, Lab and Imaging orders, Results/Orders obtained and Staff clarify orders Established Patient Charge Established Patient Point Assignment: 110 Established Patient Point Charge: EP Level 3 (80-115) Assessment & Plan Diagnosis / Problem List (1) Atrophic vaginitis: Status: Acute (2) Lichen sclerosus et atrophicus: Status: Acute (3) Subacute and chronic vaginitis: Status: Acute Plan Postmenopausal vaginal bleeding Assessment: Patient presents with vaginal bleeding occurring more than 20 years post-hysterectomy. In women of this age who have had hysterectomy decades prior, bleeding is typically attributed to atrophic changes secondary to estrogen deficiency. The absence of hormones causes the pelvic area to dry out, leading to bleeding from atrophic tissues. Plan: - Premarin estrogen cream once weekly for 6 months to address hormonal deficiency and improve tissue integrity Vulvar lichen planus/sclerosis Assessment: Physical examination reveals red, inflamed vulvar skin consistent with an autoimmune condition identified as lichen planus or lichen sclerosis. This is an age-related condition where the skin becomes very thin and inflamed from pressure. The patient has been experiencing chronic itching leading to scratching and secondary skin breakdown. Plan: - Clobetasol (strong topical steroid) cream twice daily for 2 weeks to address redness and itching - Apply to affected red areas including vulvar and perianal regions - Use gloves when applying and wash hands thoroughly after application - Avoid contact with other body areas due to potency of medication Bacterial vaginosis Assessment: Patient has concurrent bacterial infection requiring treatment alongside other vulvar conditions. Plan: - One-time dose antibiotic for bacterial vaginosis (tablet form) Vulvar yeast infection Assessment: Patient has concurrent yeast infection contributing to vulvar symptoms and requiring antifungal treatment. Plan: - Antifungal tablets for yeast infection treatment Advanced Care Planning Advance care planning discussed with:: patient
[2025-06-28 13:35] VITALS: BP 130/82; PULSE 59; RESP 18; TEMP 36.3; O2SAT 98; BMI 20.6
== END 2025-06-28 14:04 | disposition home or self-care (01) ==
LOC: HODSOBC 13:21
PROVIDERS: Supervising Provider Obstetrics & Gynecology; Visit Provider Obstetrics & Gynecology
DX: N95.2 Postmenopausal atrophic vaginitis (principal); L90.0 Lichen sclerosus et atrophicus; B37.31 Acute candidiasis of vulva and vagina; N95.0 Postmenopausal bleeding; I10 Essential (primary) hypertension; G62.9 Polyneuropathy, unspecified; E11.40 Type 2 diabetes mellitus with diabetic neuropathy, unspecified; E78.00 Pure hypercholesterolemia, unspecified; F39 Unspecified mood [affective] disorder; Z90.710 Acquired absence of both cervix and uterus; Z87.01 Personal history of pneumonia (recurrent); Z79.82 Long term (current) use of aspirin; Z79.899 Other long term (current) drug therapy
CPT/HCPCS: 99213; G0463

== ENCOUNTER 2025-07-04 11:35 | Outpatient (AMB) | payer MEDICARE, MEDICAID, SELFPAY ==
--- NOTE | 2025-07-04 11:47 | AMB.GYNCLNOT ---
Allergies/Home Meds Allergies & Medications Allergies No Known Allergies Allergy (Verified 07/04/25 11:47) Medication Reconciliation amlodipine 5 mg tablet 5 mg PO QDAY 09/08/23 [History Confirmed 07/04/25] gabapentin 800 mg tablet 200 mg PO QDAY 09/08/23 [History Confirmed 07/04/25] aspirin 81 mg tablet,delayed release 81 mg PO QDAY 04/28/24 [History Confirmed 07/04/25] atorvastatin 20 mg tablet 20 mg PO HS 04/28/24 [History Confirmed 07/04/25] carvedilol 25 mg tablet 25 mg PO BID 04/28/24 [History Confirmed 07/04/25] levofloxacin 750 mg tablet 750 mg PO QDAY CAP #4 tabs 05/31/25 [Rx Confirmed 07/04/25] clobetasol 0.05 % topical ointment 1 applic topical QAM AND QPM 2 weeks #60 grams 06/28/25 [Rx Confirmed 07/04/25] estradiol 0.01% (0.1 mg/gram) vaginal cream 1 g vaginal QWEEK 30 days #42.5 grams 06/28/25 [Rx Confirmed 07/04/25] fluconazole 150 mg tablet 150 mg PO Q3D 2 doses #2 tabs 06/28/25 [Rx Confirmed 07/04/25] Intake Visit Data Collection New Patient or Established: Established Patient (seen at [facility] within 3 years) Reason for Visit:: DISCUSS MEDICATION Consent obtained for Telemed Visit: Yes Seen by Clinical Staff ONLY (RN/MA): No Newspaper Vendor Required: No Do You Feel Safe at Home: Yes Authorities Contacted: N/A PCP or OBGYN visit in last 3 months: Yes Hx Now: No Are you currently on any form of Control: No Pain Present Currently: No Pain Scale Used: Marques-Jim/Numerical Pain scale:: 0 Smoking Status Smoking Status: Never smoker Immunizations Flu Vaccine in the Last 12 Months: Yes Flu Vaccine Exclusion Criteria: Already Received Promotions Producer history Promotions Producer History Menopausal: Yes Currently sexually active: No If not currently sexually active, have you ever been sexually active: Yes 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 1. Little interest or pleasure in doing things: not at all 2. Feeling down, depressed, or hopeless: not at all Total score: 0 PHQ-9 3. Trouble falling or staying asleep, or sleeping too much: Not at all 4. Feeling tired or having little energy: Not at all 5. Poor appetite or overeating: Not at all 6. Feeling bad about yourself - or that you are a failure or have let yourself or your family down: Not at all 7. Trouble concentrating on things, such as reading the newspaper or watching television: Not at all 8. Moving or speaking so slowly that other people could have noticed? - Or the opposite - being so fidgety or restless that you have been moving around a lot more than usual: not at all 9. Thoughts that you would be better off or of hurting yourself in some way: Not at all Total score: 0 Source: Developed by Drs. Eliezer Banerjee, Lauren Caldera, Armand Hogan and colleagues, with an educational don from [employer]. Depression screen completed yes Social History Living Situation History Lives With: Family Housing: House Housing Other:: Pt is alert/confused Tobacco History Smoking Status: Never smoker Second Hand Smoke Exposure: No Alcohol History Alcohol Intake: Never Domestic Abuse History Do You Feel Safe at Home: Yes History of Present Illness HPI Narrative Lucas Whitehead presents for a follow-up visit regarding insurance coverage issues with two prescribed generic medications. The patient reports that two medications prescribed by Dr. Gabriel are not covered by her insurance. She typically uses [facility], where the prescriptions were sent. The patient indicates that her insurance company informed her that the medications may require pre-authorization with Medicare. She is seeking assistance to resolve the coverage issue so she can obtain her prescribed medications. The patient has been taking two generic medications prescribed by Dr. Gabriel, which are not covered by insurance and require prior authorization with Medicare. ROS: Negative except as stated above, limited to SADDLE AND SIDE WIRE STITCHER and pertinent complaints. Office Procedures [facility] LOC & Office Proc's Nursing/Assessment Patient Status: Established Patient OB Clinic Nursing Assessment: Medication Reconciliation, Update PMH in EMR and Vital Signs OB Clinic Coordination of Care: Complex Care and Chronic Disease 1-5, Consent,records obtained, informed consent, Education Simp Pt/Fam, 1 Ins Authorization, Lab and Imaging orders and Staff clarify orders Established Patient Charge Established Patient Point Assignment: 115 Telehealth If patient is seen using Teleconference methods, complete New/Est section, but DO NOT bharath points only bharath the correct Telemed visit type Telemed Phone/Video with patient at home & Dr,PA,SKI MAKER: Yes Assessment & Plan Diagnosis / Problem List (1) Lichen sclerosus et atrophicus: Status: Acute (2) Subacute and chronic vaginitis: Status: Acute (3) Atrophic vaginitis: Status: Acute Plan Office will work on prior authorization Will contact patient if further information is required Advanced Care Planning Advance care planning discussed with:: patient
== END 2025-07-04 12:01 | disposition home or self-care (01) ==
LOC: HODSOBC 11:35
PROVIDERS: Supervising Provider Obstetrics & Gynecology; Visit Provider Obstetrics & Gynecology
DX: L90.0 Lichen sclerosus et atrophicus (principal); N76.1 Subacute and chronic vaginitis; N95.2 Postmenopausal atrophic vaginitis; I10 Essential (primary) hypertension; E11.9 Type 2 diabetes mellitus without complications; Z90.710 Acquired absence of both cervix and uterus; Z79.899 Other long term (current) drug therapy; Z79.82 Long term (current) use of aspirin
CPT/HCPCS: 99212; G0463